=== PATIENT | female | born 2000 | race Caucasian/White ===

== ENCOUNTER 2024-09-26 10:44 | Outpatient (AMB) | payer MEDICAID, SELFPAY ==
[2024-09-26 11:02] VITALS: BP 123/79; PULSE 75; RESP 18; TEMP 36.6; O2SAT 98
--- NOTE | 2024-09-26 11:02 | OBCLNT_ITS ---
Vital Signs 09/26/24 11:02 Height 1.5 m Height Method Stated BP 123/79 Blood Pressure Source Automatic Cuff Blood Pressure Location Left Upper Arm Position Sitting Respiration 18 Pulse 75 Pulse Source Monitor Temp 97.8 F Temp Source Temporal Artery Scan Pulse Oximetry (%) 98 Oxygen Delivery Method Room Air Allergies/Home Meds Allergies & Medications Allergies NKA* Allergy (Uncoded 09/26/24 11:04) Intake Visit Data Collection New Patient or Established: Established Patient (seen at [facility] within 3 years) Reason for Visit:: Do You Feel Safe at Home: Yes Authorities Contacted: N/A PCP or OBGYN visit in last 3 months: Yes Last menstrual period: 02/26/24 Smoking Status Smoking Status: Former smoker Questionnaires PHQ-9 PHQ-2 Over the last 2 weeks, how often have you been bothered by any of the following problems? 1. Little interest or pleasure in doing things: not at all 2. Feeling down, depressed, or hopeless: not at all Total score: 0 Depression screen completed yes Social History Living Situation History Marital Status: Lives With: Spouse Housing: House Tobacco History Smoking Status: Former smoker Alcohol History Alcohol Intake: Never Alcohol Intake Frequency: holidays/special occasions only Domestic Abuse History Do You Feel Safe at Home: Yes Past Medical History Past Medical History Have you ever been diagnosed with any of the following: History of Present Illness HPI Narrative 24-year-old 1 para 0 for OB visit. Patient is a transfer from [facility] with records. First visit at [facility] was at 9 weeks. Last menstrual period February 26, 2024. This gives due date June 03, 2025. First ultrasound was June 01 at 13 weeks. Patient had a EDC 12/02/2024 and this confirmed dates. Patient then had an anatomy scan May 23. Patient was 21 weeks 2 and this also confirmed dates. Baby had a EFW in the 18th percentile. NVS at the was identified. Patient's recent echo showed normal growth and resolved VSD. Next maternal- medicine appointment is on October 01. Patient reports occasional alcohol use. She recently stopped smoking. Patient denies any current medical history. Patient denies surgeries. Reports movement. Denies labor. 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 Patient is a transfer from [facility]. Records are in the chart. I reviewed results and records with patient. Reviewed third trimester lab results with patient. Advised patient to continue to increase fluids. Increase protein in the diet. And rest. Next maternal- medicine appointment is October 01. Patient reports good movement. Denies labor complaints. Complains of low backache. Complains of tingling sometimes of hands and increased leg cramps. Patient stands at work. She is working 4 hours a day. I discussed comfort measures for the tingling. Increase fluids. I gave comfort measures for leg cramps. I discussed labor precautions with patient. Patient declined Tdap today. No other concerns today. 24-year-old 1 para 0 for first OB visit here at [facility]. Patient is a transfer from [facility]. Records are in the chart. I reviewed results and records with patient. Reviewed third trimester lab results with patient. Advised patient to continue to increase fluids. Increase protein in the diet. And rest. Next maternal- medicine appointment is October 01. Patient reports good movement. Denies labor complaints. Complains of low backache. Complains of tingling sometimes of hands and increased leg cramps. Patient stands at work. She is working 4 hours a day. I discussed comfort measures for the tingling. Increase fluids. I gave comfort measures for leg cramps. I discussed labor precautions with patient. Patient declined Tdap today. No other concerns today. denies UTI complaints 156 active Menstrual History Menstrual reliability: definite Flow: normal Menstrual regularity: regular Monthly: Yes Age at menarche: 12 On control pills at conception: No Date of positive home test: 03/27/24 Infection History & Risk Evaluation History of STDs: none HIV risk evaluation: low risk Hepatitis B risk evaluation: low risk Patient or partner has history of Genital Herpes: No Varicella/chicken pox status: immunized Genetic Screening & History Genetic Screening/Teratology Counseling - Includes patient, baby's father, or anyone in either family with: 1. Patient's age 35 years or older as of estimated date of delivery: No 2. Thalassemia (Belarusian, Serbian, Mediterranean, or Background); MCV less than 80: No 3. Neural Tube Defect (Meningomyelocele, Spina Bifida, or Anencephaly): No 4. Congenital Heart Defect: No 5. Down Syndrome: No 6. Meliton-Sachs (Ashkenazi Pentecostal, Cajun, Irish Mauritian): No 7. Pat Disease (Ashkenazi Pentecostal): No 8. Familial Dysautonomia (Ashkenazi Pentecostal): No 9. Sickle Cell Disease or Trait (): No 10. Hemophilia or other blood disorders: No 11. Muscular Dystrophy: No 12. Cystic Fibrosis: No 13. [place]'s Chorea: No 14. Mental Retardation/Autism: No 15. Other inherited genetic or chromosomal disorder: No 16. Maternal Metabolic Disorder (EG,TYPE 1 Diabetes, PKU): No 17. Patient or baby's father had a child with defects not listed above: No 18. Recurrent loss or a stillbirth: No 19. Medications (including supplements, vitamins, herbs or otc drugs)/illicit/recreational drugs/alcohol since last menstrual period: No 20. Any other: No Infection History 1. Live with someone with TB or exposed to TB: No 2. Rash or viral illness since last menstrual period: No 3. Hepatitis B,C: No Other (see comments) Source: [employer] Review of Systems Review of Systems Systems Reviewed: All systems reviewed, normal except as documented Exam General Limitations: no limitations General Appearance: alert, in no apparent distress, comfortable, cooperative, healthy appearing, well developed and well groomed Head Head exam: atraumatic, normocephalic and normal inspection Chest Chest inspection: Present normal inspection and symmetric chest wall rise Resp Respiratory exam: Present normal lung sounds bilaterally Card Cardiovascular exam: Present regular rate, normal rhythm and normal heart sounds Abdominal Abdominal exam: Present soft (fh:30. fht:156) and normal bowel sounds Psych Psychiatric exam: Present normal affect and normal mood Assessment & Plan Diagnosis / Problem List (1) Encounter for supervision of normal first , first trimester: Status: Acute Plan Comfort measures for leg cramps. Advised to increase fluids. Avoid salty foods. Elevate legs after working. Discussed labor precautions. I reviewed Tdap with patient so that she can decide whether or not she wants to refuse Tdap. Keep maternal- medicine appointment for 01 October. Return in 2 weeks visit Additional Plan Follow Up: 2 Weeks (2 week OBc) Office Procedures OB Clinic LOC & Office Proc's Nursing/Assessment Patient Status: Established Patient OB Clinic Nursing Assessment: Medication Reconciliation, Update PMH in EMR and Vital Signs OB Clinic Coordination of Care: Complex Care and Chronic Disease 1-5, Consent,r ecords obtained, informed consent, Education Simp Pt/Fam and Staff clarify orders Established Patient Charge Established Patient Point Assignment: 85 Established Patient Point Charge: EP Level 3 (80-115)
== END 2024-09-26 11:34 | disposition home or self-care (01) ==
LOC: HODSOBC 10:44
PROVIDERS: Supervising Provider Advanced Practice Midwife; Visit Provider Advanced Practice Midwife
DX: Z34.03 Encounter for supervision of normal first pregnancy, third trimester (principal); Z3A.30 30 weeks gestation of pregnancy; Z87.891 Personal history of nicotine dependence
CPT/HCPCS: 99213; G0463

== ENCOUNTER 2024-10-10 10:12 | Outpatient (AMB) | payer MEDICAID, SELFPAY ==
[2024-10-10 10:54] VITALS: BP 117/74; PULSE 90; RESP 18; TEMP 36.8; O2SAT 99; BMI 30.9
--- NOTE | 2024-10-10 10:54 | OBCLNT_ITS ---
Vital Signs 10/10/24 10:54 Height 1.5 m Height Method Stated Weight 69.57 kg Weight Measurement Method Standing Scale BMI 30.9 BP 117/74 Blood Pressure Source Automatic Cuff Blood Pressure Location Left Upper Arm Position Sitting Respiration 18 Pulse 90 Pulse Source Monitor Temp 98.2 F Temp Source Oral Pulse Oximetry (%) 99 Oxygen Delivery Method Room Air Allergies/Home Meds Allergies & Medications Allergies NKA* Allergy (Uncoded 10/10/24 10:54) Medication Reconciliation clotrimazole 2 % vaginal cream (Gyne-Lotrimin) 1 appful vaginal QHS 3 days #21 grams 10/10/24 [Rx] metronidazole 500 mg tablet 500 mg PO BID 7 days #14 tabs 10/10/24 [Rx] Intake Visit Data Collection New Patient or Established: Established Patient (seen at [facility] within 3 years) Reason for Visit:: obc Seen by Clinical Staff ONLY (RN/MA): No Medical Assistant Per Diem Required: No Do You Feel Safe at Home: Yes Authorities Contacted: N/A PCP or OBGYN visit in last 3 months: Yes Date of Last PCP or OBGYN visit: 09/26/24 Hx Now: Yes Are you currently on any form of Control: No Pain Present Currently: No Pain Scale Used: Salguero-Middleton/Numerical Pain scale:: 0 Smoking Status Smoking Status: Former smoker Questionnaires Covid-19 Vaccine Questionnaire Has patient been vacinated for Covid-19 Have you been vacinated for Covid-19: Yes PHQ-9 PHQ-2 Over the last 2 weeks, how often have you been bothered by any of the following problems? 1. Little interest or pleasure in doing things: not at all 2. Feeling down, depressed, or hopeless: not at all Total score: 0 PHQ-9 3. Trouble falling or staying asleep, or sleeping too much: Not at all 4. Feeling tired or having little energy: Not at all 5. Poor appetite or overeating: Not at all 6. Feeling bad about yourself - or that you are a failure or have let yourself or your family down: Not at all 7. Trouble concentrating on things, such as reading the newspaper or watching television: Not at all 8. Moving or speaking so slowly that other people could have noticed? - Or the opposite - being so fidgety or restless that you have been moving around a lot more than usual: not at all 9. Thoughts that you would be better off or of hurting yourself in some way: Not at all Total score: 0 If you checked off any problems, how difficult have these problems made it for you to do your work, take care of things at home, or get along with other people?: not difficult at all Source: Developed by Drs. Kayden Alvarez, Frannie Rm, Dominic Zuleta and colleagues, with an educational robbie from [facility]. Depression screen completed yes Social History Living Situation History Lives With: Spouse Housing: House Tobacco History Smoking Status: Former smoker Second Hand Smoke Exposure: No Alcohol History Alcohol Intake: Never Alcohol Intake Frequency: holidays/special occasions only Domestic Abuse History Do You Feel Safe at Home: Yes Past Medical History Past Medical History Have you ever been diagnosed with any of the following: Visit OB Visit Log OB Flowsheet Initial Weight: Not Recorded Date -?-?-?-?-?-?-?-?-?-?-?-?- EGA Weight Edema CTX Effacement BP Fundal ht Pres Dilation Effacement Station Visit Note Alb Glu FHR Mov 09/26/24 -?-?-?-?-?-?-?-?-?-?-?-?- 30w 3d absent absent 123/79 30 cephalic 24-year-old 1 para 0 for first OB visit here at [facility]. Patient is a transfer from [facility]. Records are in the chart. I reviewed results and records with patient. Reviewed third trimester lab results with patient. Advised patient to continue to increase fluids. Increase protein in the diet. And rest. Next maternal- medicine appointment is October 01. Patient reports good movement. Denies labor complaints. Complains of low backache. Complains of tingling sometimes of hands and increased leg cramps. Patient stands at work. She is working 4 hours a day. I discussed comfort measures for the tingling. Increase fluids. I gave comfort measures for leg cramps. I discussed labor precautions with patient. Patient declined Tdap today. No other concerns today. 24-year-old 1 para 0 for first OB visit here at [facility]. Patient is a transfer from [facility]. Records are in the chart. I reviewed results and records with patient. Reviewed third trimester lab results with patient. Advised patient to continue to increase fluids. Increase protein in the diet. And rest. Next maternal- medicine appointment is October 01. Patient reports good movement. Denies labor complaints. Complains of low backache. Complains of tingling sometimes of hands and increased leg cramps. Patient stands at work. She is working 4 hours a day. I discussed comfort measures for the tingling. Increase fluids. I gave comfort measures for leg cramps. I discussed labor precautions with patient. Patient declined Tdap today. No other concerns today. denies UTI complaints 156 active 10/10/24 -?-?-?-?-?-?-?-?-?-?-?-?- 32w 3d 69.57 kg absent absent 117/74 32 cephalic SGA/fetus 10%, patient has f/u mfm 3 week. reports good weight gain/30lb. 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 reviewed s/s of srom vs increased discharge. spec exam, + yeast, vagina red, curdy discharge. yellow green, nuswab plus, gynelotrimin x 7 and metronidazole 500 bid x7, comfort measure for back ache, ER precaution, declined TDAP. ptl precaution, discuss fkc bid. rtc 2 week 135 active MARTIN Calculator Estimated Delivery Date Method Current WG Current Estimate 12/02/24 Ultrasound #1 32w 3d Other Estimates 12/02/24 LMP (Certain) 32w 3d 12/02/24 Ultrasound #2 32w 3d Assessment & Plan Diagnosis / Problem List (1) Encounter for supervision of normal first , first trimester: Status: Acute (2) Candidal vaginitis: Status: Acute Plan labor precautions reviewed with patient. Discussed ER precautions. Discussed signs symptoms of leaking fluid and causes. NuSwab plus today. Patient declined Tdap. Metronidazole 500 twice daily x 7 days and Gyne-Lotrimin x 7 days. Comfort measures for vaginitis. Kick count twice a day and I reviewed it with patient. Return in 2 weeks OB check. And keep follow-up with MFM in 3 weeks Additional Plan Follow Up: 2 Weeks (obc) Office Procedures OB Clinic LOC & Office Proc's Nursing/Assessment Patient Status: Established Patient OB Clinic Nursing Assessment: BP Monitoring, Medication Reconciliation, Update PMH in EMR and Vital Signs OB Clinic Coordination of Care: Consent,records obtained, informed consent, Edu cation Simp Pt/Fam and Staff clarify orders Special Needs: Heart tones Established Patient Charge Established Patient Point Assignment: 105 Established Patient Point Charge: EP Level 3 (80-115)
== END 2024-10-10 11:16 | disposition home or self-care (01) ==
LOC: HODSOBC 10:12
PROVIDERS: Supervising Provider Advanced Practice Midwife; Visit Provider Advanced Practice Midwife
DX: O09.893 Supervision of other high risk pregnancies, third trimester (principal); Z3A.32 32 weeks gestation of pregnancy; B37.31 Acute candidiasis of vulva and vagina; O36.5930 Maternal care for other known or suspected poor fetal growth, third trimester, not applicable or unspecified; Z87.891 Personal history of nicotine dependence
CPT/HCPCS: 99213; G0463

== ENCOUNTER 2024-10-25 09:39 | Outpatient (AMB) | payer MEDICAID, SELFPAY ==
[2024-10-25 10:09] VITALS: BP 121/76; PULSE 92; RESP 18; TEMP 36.5; O2SAT 96; BMI 31.5
--- NOTE | 2024-10-25 10:09 | OBCLNT_ITS ---
Vital Signs 10/25/24 10:09 Height 1.5 m Height Method Stated Weight 70.987 kg Weight Measurement Method Standing Scale BMI 31.5 BP 121/76 Blood Pressure Source Automatic Cuff Blood Pressure Location Left Upper Arm Position Sitting Respiration 18 Pulse 92 Pulse Source Monitor Temp 97.7 F Temp Source Oral Pulse Oximetry (%) 96 Oxygen Delivery Method Room Air Allergies/Home Meds Allergies & Medications Allergies NKA* Allergy (Uncoded 10/25/24 10:11) Medication Reconciliation No Known Home Medications 10/25/24 [History Confirmed 10/25/24] Intake Visit Data Collection New Patient or Established: Established Patient (seen at [facility] within 3 years) Reason for Visit:: CARE Seen by Clinical Staff ONLY (RN/MA): No Camp Counselor Required: No Do You Feel Safe at Home: Yes Authorities Contacted: N/A PCP or OBGYN visit in last 3 months: Yes Hx Now: Yes Are you currently on any form of Control: No Pain Present Currently: No Pain Scale Used: Salguero-Middleton/Numerical Pain scale:: 0 Smoking Status Smoking Status: Former smoker Questionnaires Covid-19 Vaccine Questionnaire Has patient been vacinated for Covid-19 Have you been vacinated for Covid-19: No PHQ-9 PHQ-2 Over the last 2 weeks, how often have you been bothered by any of the following problems? 1. Little interest or pleasure in doing things: not at all 2. Feeling down, depressed, or hopeless: not at all Total score: 0 PHQ-9 3. Trouble falling or staying asleep, or sleeping too much: Not at all 4. Feeling tired or having little energy: Not at all 5. Poor appetite or overeating: Not at all 6. Feeling bad about yourself - or that you are a failure or have let yourself or your family down: Not at all 7. Trouble concentrating on things, such as reading the newspaper or watching television: Not at all 8. Moving or speaking so slowly that other people could have noticed? - Or the opposite - being so fidgety or restless that you have been moving around a lot more than usual: not at all 9. Thoughts that you would be better off or of hurting yourself in some way: Not at all Total score: 0 Source: Developed by Frannie Samson B[employer], Dominic Zuleta and colleagues, with an educational robbie from [employer]. Depression screen completed yes Social History Living Situation History Lives With: Spouse Housing: House Tobacco History Smoking Status: Former smoker Second Hand Smoke Exposure: No Alcohol History Alcohol Intake: Never Alcohol Intake Frequency: holidays/special occasions only Domestic Abuse History Do You Feel Safe at Home: Yes Care OB Visit Log OB Flowsheet Initial Weight: Not Recorded Date -?-?-?-?-?-?-?-?-?-?-?-?- EGA Weight Edema CTX Effacement BP Fundal ht Pres Dilation Effacement Station Visit Note Alb Glu FHR Mov 09/26/24 -?-?-?-?-?-?-?-?-?-?-?-?- 30w 3d absent absent 123/79 30 cephalic 24-year-old 1 para 0 for first OB visit here at [facility]. Patient is a transfer from [facility]. Records are in the chart. I reviewed results and records with patient. Reviewed third trimester lab results with patient. Advised patient to continue to increase fluids. Increase protein in the diet. And rest. Next maternal- medicine appointment is October 01. Patient reports good movement. Denies labor complaints. Complains of low backache. Complains of tingling sometimes of hands and increased leg cramps. Patient stands at work. She is working 4 hours a day. I discussed comfort measures for the tingling. Increase fluids. I gave comfort measures for leg cramps. I discussed labor precautions with patient. Patient declined Tdap today. No other concerns today. 24-year-old 1 para 0 for first OB visit here at [facility]. Patient is a transfer from [facility]. Records are in the chart. I reviewed results and records with patient. Reviewed third trimester lab results with patient. Advised patient to continue to increase fluids. Increase protein in the diet. And rest. Next maternal- medicine appointment is October 01. Patient reports good movement. Denies labor complaints. Complains of low backache. Complains of tingling sometimes of hands and increased leg cramps. Patient stands at work. She is working 4 hours a day. I discussed comfort measures for the tingling. Increase fluids. I gave comfort measures for leg cramps. I discussed labor precautions with patient. Patient declined Tdap today. No other concerns today. denies UTI complaints 156 active 10/10/24 -?-?-?-?-?-?-?-?-?-?-?-?- 32w 3d 69.57 kg absent absent 117/74 32 cephalic SGA/fetus 10%, patient has f/u mfm 3 week. reports good weight gain/30lb. 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 reviewed s/s of srom vs increased discharge. spec exam, + yeast, vagina red, curdy discharge. yellow green, nuswab plus, gynelotrimin x 7 and metronidazole 500 bid x7, comfort measure for back ache, ER precaution, declined TDAP. ptl precaution, discuss fkc bid. rtc 2 week 135 active 10/25/24 -?-?-?-?-?-?-?-?-?-?-?-?- 34w 4d 70.987 kg absent occasional 121/76 33 cepha lic Reports movement. Reports occasional contractions. Patient feels a Jose Tyler. Disability today. I scheduled ultrasound for growth. GBS next visit. Discussed labor precautions and kick count. Advised to increase fluids. Return in a week OB check 146 active MARTIN Calculator Estimated Delivery Date Method Current WG Current Estimate 12/02/24 Ultrasound #1 34w 4d Other Estimates 12/02/24 LMP (Certain) 34w 4d 12/02/24 Ultrasound #2 34w 4d Notes Visit Date: 10/25/24 Last Updated by: Desirae Hayden, SANGEETA 24 yo , lmp 03/01/24. EDC 12/04/24, A+,abs-, rpr;;nr, rub NI, hbsag-,hiv-,HC-, GC/CT-, 3rd tri lab wnl Office Procedures OB Clinic LOC & Office Proc's Nursing/Assessment Patient Status: Established Patient OB Clinic Nursing Assessment: Medication Reconciliation, Update PMH in EMR and Vital Signs OB Clinic Coordination of Care: Complex Care and Chronic Disease 1-5, Consent,records obtained, informed consent, Education Simp Pt/Fam, Lab and Imaging orders, Results/Orders obtained and Staff clarify orders Special Needs: Heart tones Miscellaneous Interventions: Blood/Urine Collection Established Patient Charge Established Patient Point Assignment: 165 Established Patient Point Charge: EP Level 5 (160-above) Assessment & Plan Diagnosis / Problem List (1) Encounter for supervision of normal first , first trimester: Status: Acute Plan Discussed labor precautions and kick count twice a day. Increase fluids and rest. Disability paperwork today. GBS next visit. Return in a week OB check. Sono for growth Additional Plan Follow Up: 1 Week (obc/gbs)
[2024-10-25 12:52] LABS: Bilirubin,Urine Clinitek Negative (Negative); Blood,Urine Clinitek Negative (Negative); Glucose, Urine Clinitek Negative (Negative); Ketones,Urine Clinitek Negative (Negative); Leukocyte Esterase,Urine Clin Negative (Negative); Nitrite,Urine Clinitek Negative (Negative); PH,Urine Clinitek 6.5 (5.0-7.0); Protein,Urine Clinitek Negative (Neg - Trace); Specific Gravity,Urine Clin <= 1.005 (1.001-1.030); Urobilinogen,Urine Clinitek 0.2 mg/dL (0.0-1.0)
== END 2024-10-25 10:20 | disposition home or self-care (01) ==
LOC: HODSOBC 09:39
PROVIDERS: PCP Advanced Practice Midwife; Referring Provider Advanced Practice Midwife; Supervising Provider Advanced Practice Midwife; Visit Provider Advanced Practice Midwife
DX: Z34.01 Encounter for supervision of normal first pregnancy, first trimester (principal); Z3A.34 34 weeks gestation of pregnancy
CPT/HCPCS: 81001; 99215; G0463

== ENCOUNTER 2024-11-01 09:55 | Outpatient (AMB) | payer MEDICAID, SELFPAY ==
[2024-11-01 10:19] VITALS: BP 127/80; PULSE 115; RESP 18; TEMP 36.2; O2SAT 98; BMI 31.8
--- NOTE | 2024-11-01 10:19 | OBCLNT_ITS ---
Vital Signs 11/01/24 10:19 Height 1.5 m Height Method Stated Weight 71.781 kg Weight Measurement Method Standing Scale BMI 31.8 BP 127/80 Blood Pressure Source Automatic Cuff Blood Pressure Location Left Upper Arm Position Sitting Respiration 18 Pulse 115 H Pulse Source Monitor Temp 97.2 F Temp Source Oral Pulse Oximetry (%) 98 Oxygen Delivery Method Room Air Allergies/Home Meds Allergies & Medications Allergies NKA* Allergy (Uncoded 11/01/24 10:20) Medication Reconciliation No Known Home Medications 10/25/24 [History Confirmed 11/01/24] Intake Visit Data Collection New Patient or Established: Established Patient (seen at [facility] within 3 years) Reason for Visit:: OBC Seen by Clinical Staff ONLY (RN/MA): No Lathe Set Up Person Required: No Do You Feel Safe at Home: Yes Authorities Contacted: N/A PCP or OBGYN visit in last 3 months: Yes Date of Last PCP or OBGYN visit: 10/25/24 Hx Now: Yes Are you currently on any form of Control: No Pain Present Currently: No Pain Scale Used: Salguero-Middleton/Numerical Pain scale:: 0 Smoking Status Smoking Status: Former smoker Questionnaires Covid-19 Vaccine Questionnaire Has patient been vacinated for Covid-19 Have you been vacinated for Covid-19: Yes PHQ-9 PHQ-2 Over the last 2 weeks, how often have you been bothered by any of the following problems? 1. Little interest or pleasure in doing things: not at all 2. Feeling down, depressed, or hopeless: not at all Total score: 0 PHQ-9 3. Trouble falling or staying asleep, or sleeping too much: Not at all 4. Feeling tired or having little energy: Not at all 5. Poor appetite or overeating: Not at all 6. Feeling bad about yourself - or that you are a failure or have let yourself or your family down: Not at all 7. Trouble concentrating on things, such as reading the newspaper or watching television: Not at all 8. Moving or speaking so slowly that other people could have noticed? - Or the opposite - being so fidgety or restless that you have been moving around a lot more than usual: not at all 9. Thoughts that you would be better off or of hurting yourself in some way: Not at all Total score: 0 If you checked off any problems, how difficult have these problems made it for you to do your work, take care of things at home, or get along with other peopl e?: not difficult at all Source: Developed by Drs. Kayden Alvarez, Frannie Rm, Dominic Zuleta and colleagues, with an educational robbie from [employer]. Depression screen completed yes Social History Living Situation History Marital Status: Lives With: Spouse Housing: House Tobacco History Smoking Status: Former smoker Second Hand Smoke Exposure: No Alcohol History Alcohol Intake: Never Alcohol Intake Frequency: holidays/special occasions only Domestic Abuse History Do You Feel Safe at Home: Yes Care OB Visit Log OB Flowsheet Initial Weight: Not Recorded Date -?-?-?-?-?-?-?-?-?-?-?-?- EGA Weight BP Alb Glu CTX Pres Fundal ht FHR Mov Dilation Station Effacement Hx Notes Visit Note 09/26/24 -?-?-?-?-?-?-?-?-?-?-?-?- 30w 3d 123/79 absent cephalic 30 156 activ e 24-year-old 1 para 0 for first OB visit here at [facility]. Patient is a transfer from [facility]. Records are in the chart. I reviewed results and records with patient. Reviewed third trimester lab results with patient. Advised patient to continue to increase fluids. Increase protein in the diet. And rest. Next maternal- medicine appointment is October 01. Patient reports good movement. Denies labor complaints. Complains of low backache. Complains of tingling sometimes of hands and increased leg cramps. Patient stands at work. She is working 4 hours a day. I discussed comfort measures for the tingling. Increase fluids. I gave comfort measures for leg cramps. I discussed labor precautions with patient. Patient declined Tdap today. No other concerns today. 24-year-old 1 para 0 for first OB visit here at [facility]. Patient is a transfer from [facility]. Records are in the chart. I reviewed results and records with patient. Reviewed third trimester lab results with patient. Advised patient to continue to increase fluids. Increase protein in the diet. And rest. Next maternal- medicine appointment is October 01. Patient reports good movement. Denies labor complaints. Complains of low backache. Complains of tingling sometimes of hands and increased leg cramps. Patient stands at work. She is working 4 hours a day. I discussed comfort measures for the tingling. Increase fluids. I gave comfort measures for leg cramps. I discussed labor precautions with patient. Patient declined Tdap today. No other concerns today. denies UTI complaints 10/10/24 -?-?-?-?-?-?-?-?-?-?-?-?- 32w 3d 69.57 kg 117/74 absent cephalic 32 135 active SGA/fetus 10%, patient has f/u mfm 3 week. reports good weight gain/30lb. 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 reviewed s/s of srom vs increased discharge. spec exam, + yeast, vagina red, curdy discharge. yellow green, nuswab plus, gynelotrimin x 7 and metronidazole 500 bid x7, comfort measure for back ache, ER precaution, declined TDAP. ptl precaution, discuss fkc bid. rtc 2 week 10/25/24 -?-?-?-?-?--?-?-?-?-?-?-?- 34w 4d 70.987 kg 121/76 occasional cephalic 33 146 active Reports movement. Reports occasional contractions. Patient feels a [place]. Disability today. I scheduled ultrasound for growth. GBS next visit. Discussed labor precautions and kick count. Advised to increase fluids. Return in a week OB check MARTIN Calculator Estimated Delivery Date Method Current WG Current Estimate 12/02/24 Ultrasound #1 35w 4d Other Estimates 12/02/24 LMP (Certain) 35w 4d 12/02/24 Ultrasound #2 35w 4d Notes Visit Date: 10/25/24 Last Updated by: Desirae Hayden CNM 24 yo , lmp 03/01/24. EDC 12/04/24, A+,abs-, rpr;;nr, rub NI, hbsag-,hiv-,HC-, GC/CT-, 3rd tri lab wnl Office Procedures OB Clinic LOC & Office Proc's Nursing/Assessment Patient Status: Established Patient OB Clinic Nursing Assessment: Medication Reconciliation, Update PMH in EMR and Vital Signs OB Clinic Coordination of Care: Education Complex Pt/Fam, Consent,records obtained, informed consent, Lab and Imaging orders, Results/Orders obtained and Staff clarify orders Special Needs: Heart tones Established Patient Charge Established Patient Point Assignment: 115 Established Patient Point Charge: EP Level 3 (80-115) Assessment & Plan Diagnosis / Problem List (1) Encounter for supervision of normal first , first trimester: Status: Acute Plan discuss labor precaution, fkc bid, GBS today. hydrate. rtc 1 week obc
== END 2024-11-01 10:47 | disposition home or self-care (01) ==
LOC: HODSOBC 09:55
PROVIDERS: PCP Advanced Practice Midwife; Referring Provider Advanced Practice Midwife; Supervising Provider Obstetrics & Gynecology; Visit Provider Advanced Practice Midwife
DX: Z34.03 Encounter for supervision of normal first pregnancy, third trimester (principal); Z3A.35 35 weeks gestation of pregnancy; Z36.85 Encounter for antenatal screening for Streptococcus B
CPT/HCPCS: 99213; G0463

== ENCOUNTER 2024-11-08 09:27 | Outpatient (AMB) | payer MEDICAID, SELFPAY ==
[2024-11-08 09:41] VITALS: BP 112/74; PULSE 95; RESP 20; TEMP 36.3; O2SAT 96; BMI 32.3
--- NOTE | 2024-11-08 09:41 | OBCLNT_ITS ---
Vital Signs 11/08/24 09:41 Height 1.5 m Height Method Stated Weight 72.631 kg Weight Measurement Method Standing Scale BMI 32.3 BP 112/74 Blood Pressure Source Automatic Cuff Blood Pressure Location Right Upper Arm Position Sitting Respiration 20 Pulse 95 Pulse Source Monitor Temp 97.4 F Temp Source Oral Pulse Oximetry (%) 96 Oxygen Delivery Method Room Air Allergies/Home Meds Allergies & Medications Allergies NKA* Allergy (Uncoded 11/08/24 09:42) Medication Reconciliation No Known Home Medications 10/25/24 [History Confirmed 11/08/24] Intake Visit Data Collection New Patient or Established: Established Patient (seen at [facility] within 3 years) Reason for Visit:: CARE Seen by Clinical Staff ONLY (RN/MA): No Liability Claims Examiner Required: No Do You Feel Safe at Home: Yes Authorities Contacted: N/A PCP or OBGYN visit in last 3 months: Yes Hx Now: Yes Pain Present Currently: No Pain Scale Used: Salguero-Middleton/Numerical Pain scale:: 0 Smoking Status Smoking Status: Former smoker Questionnaires Covid-19 Vaccine Questionnaire Has patient been vacinated for Covid-19 Have you been vacinated for Covid-19: Yes PHQ-9 PHQ-2 Over the last 2 weeks, how often have you been bothered by any of the following problems? 1. Little interest or pleasure in doing things: not at all 2. Feeling down, depressed, or hopeless: not at all Total score: 0 PHQ-9 3. Trouble falling or staying asleep, or sleeping too much: Not at all 4. Feeling tired or having little energy: Not at all 5. Poor appetite or overeating: Not at all 6. Feeling bad about yourself - or that you are a failure or have let yourself or your family down: Not at all 7. Trouble concentrating on things, such as reading the newspaper or watching television: Not at all 8. Moving or speaking so slowly that other people could have noticed? - Or the opposite - being so fidgety or restless that you have been moving around a lot more than usual: not at all 9. Thoughts that you would be better off or of hurting yourself in some way: Not at all Total score: 0 Source: Developed by Drs. Kayden Alvarez, Frannie B.Dominic Nance and colleagues, with an educational robbie from [employer]. Depression screen completed yes Social History Living Situation History Lives With: Spouse Housing: House Tobacco History Smoking Status: Former smoker Second Hand Smoke Exposure: No Alcohol History Alcohol Intake: Never Alcohol Intake Frequency: holidays/special occasions only Domestic Abuse History Do You Feel Safe at Home: Yes Care OB Visit Log OB Flowsheet Initial Weight: Not Recorded Date -?-?-?-?-?-?-?-?-?-?-?-?- EGA Weight BP Alb Glu CTX Pres Fundal ht FHR Mov Dilation Station Effacement Hx Notes Visit Note 09/26/24 -?-?-?-?-?-?-?-?-?-?-?-?- 30w 3d 123/79 absent cephalic 30 156 activ e 24-year-old 1 para 0 for first OB visit here at [facility]. Patient is a transfer from [facility]. Records are in the chart. I reviewed results and records with patient. Reviewed third trimester lab results with patient. Advised patient to continue to increase fluids. Increase protein in the diet. And rest. Next maternal- medicine appointment is October 01. Patient reports good movement. Denies labor complaints. Complains of low backache. Complains of tingling sometimes of hands and increased leg cramps. Patient stands at work. She is working 4 hours a day. I discussed comfort measures for the tingling. Increase fluids. I gave comfort measures for leg cramps. I discussed labor precautions with patient. Patient declined Tdap today. No other concerns today. 24-year-old 1 para 0 for first OB visit here at [facility]. Patient is a transfer from [facility]. Records are in the chart. I reviewed results and records with patient. Reviewed third trimester lab results with patient. Advised patient to continue to increase fluids. Increase protein in the diet. And rest. Next maternal- medicine appointment is October 01. Patient reports good movement. Denies labor complaints. Complains of low backache. Complains of ting ling sometimes of hands and increased leg cramps. Patient stands at work. She is working 4 hours a day. I discussed comfort measures for the tingling. Increase fluids. I gave comfort measures for leg cramps. I discussed labor precautions with patient. Patient declined Tdap today. No other concerns today. denies UTI complaints 10/10/24 -?-?-?-?-?-?-?-?-?-?-?-?- 32w 3d 69.57 kg 117/74 absent cephalic 32 135 active SGA/fetus 10%, patient has f/u mfm 3 week. reports good weight gain/30lb. 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 try on baster. patient is planning to stop work. 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 reviewed s/s of srom vs increased discharge. spec exam, + yeast, vagina red, curdy discharge. yellow green, nuswab plus, gynelotrimin x 7 and metronidazole 500 bid x7, comfort measure for back ache, ER precaution, declined TDAP. ptl precaution, discuss fkc bid. rtc 2 week 10/25/24 -?-?-?-?-?-?-?-?-?-?-?-?- 34w 4d 70.987 kg 121/76 occasional cephalic 33 146 active Reports movement. Reports occasional contractions. Patient feels a [place]. Disability today. I scheduled ultrasound for growth. GBS next visit. Discussed labor precautions and kick count. Advised to increase fluids. Return in a week OB check 11/01/24 -?-?-?-?-?-?-?-?-?-?-?-?- 35w 4d 71.781 kg 127/80 occasional cephalic 35 156 active reports +FM, denies uc, occ [place] chan, denies leaking or bleeding, fetus active GBS today, discuss labor precaution, fkc bid, increase fluid, discuss ER precaution, rtc 1 week oBC 11/08/24 -?-?-?-?-?-?-?-?-?-?-?-?- 36w 4d 72.631 kg 112/74 occasional cephalic 36 145 active fetus active. increased michelle chan, denies leaking or bleeding labor precaution reviewed, FKC BID, discuss ER precaution, hydrate. rtc 1 week MARTIN Calculator Estimated Delivery Date Method Current WG Current Estimate 12/02/24 Ultrasound #1 36w 4d Other Estimates 12/02/24 LMP (Certain) 36w 4d 12/02/24 Ultrasound #2 36w 4d Notes Visit Date: 10/25/24 Last Updated by: Desirae Hayden, CNM 24 yo , lmp 03/01/24. EDC 12/04/24, A+,abs-, rpr;;nr, rub NI, hbsag-,hiv-,HC-, GC/CT-, 3rd tri lab wnl Office Procedures OB Clinic LOC & Office Proc's Nursing/Assessment Patient Status: Established Patient OB Clinic Nursing Assessment: Medication Reconciliation, Update PMH in EMR and Vital Signs OB Clinic Coordination of Care: Complex Care and Chronic Disease 1-5, Consent,records obtained, informed consent, Education Simp Pt/Fam, Lab and Imaging orders, Results/Orders obtained and Staff clarify orders Special Needs: Heart tones Established Patient Charge Established Patient Point Assignment: 135 Established Patient Point Charge: EP Level 4 (120-155) Assessment & Plan Diagnosis / Problem List (1) Encounter for supervision of normal first , first trimester: Status: Acute Plan discuss labor precaution, fkc bid. discuss ER precaution Additional Plan Follow Up: 1 Week (obc)
== END 2024-11-08 09:55 | disposition home or self-care (01) ==
PROVIDERS: PCP Advanced Practice Midwife; Referring Provider Advanced Practice Midwife; Supervising Provider Advanced Practice Midwife; Visit Provider Advanced Practice Midwife
DX: Z34.03 Encounter for supervision of normal first pregnancy, third trimester (principal); Z3A.36 36 weeks gestation of pregnancy; Z87.891 Personal history of nicotine dependence
CPT/HCPCS: 99214; G0463

== ENCOUNTER 2024-11-15 09:21 | Outpatient (AMB) | payer MEDICAID, SELFPAY ==
[2024-11-15 09:34] VITALS: BP 121/74; PULSE 93; RESP 18; TEMP 36.2; O2SAT 98; BMI 32.6
--- NOTE | 2024-11-15 09:34 | AMB.OBVISIT ---
Vital Signs 11/15/24 09:34 Height 1.5 m Height Method Stated Weight 73.539 kg Weight Measurement Method Standing Scale BMI 32.6 BP 121/74 Blood Pressure Source Automatic Cuff Blood Pressure Location Left Upper Arm Position Sitting Respiration 18 Pulse 93 Pulse Source Monitor Temp 97.2 F Temp Source Oral Pulse Oximetry (%) 98 Oxygen Delivery Method Room Air Allergies/Home Meds Allergies & Medications Allergies NKA* Allergy (Uncoded 11/15/24 09:36) Medication Reconciliation No Known Home Medications 10/25/24 [History Confirmed 11/15/24] Intake Visit Data Collection New Patient or Established: Established Patient (seen at [facility] within 3 years) Reason for Visit:: OBC Seen by Clinical Staff ONLY (RN/MA): No International Flight Attendant Required: No Do You Feel Safe at Home: Yes Authorities Contacted: N/A PCP or OBGYN visit in last 3 months: Yes Date of Last PCP or OBGYN visit: 11/08/24 Hx Now: Yes Are you currently on any form of Control: No Pain Present Currently: No Pain Scale Used: Salguero-Middleton/Numerical Pain scale:: 0 Smoking Status Smoking Status: Former smoker Questionnaires Covid-19 Vaccine Questionnaire Has patient been vacinated for Covid-19 Have you been vacinated for Covid-19: Yes PHQ-9 PHQ-2 Over the last 2 weeks, how often have you been bothered by any of the following problems? 1. Little interest or pleasure in doing things: not at all 2. Feeling down, depressed, or hopeless: not at all Total score: 0 PHQ-9 3. Trouble falling or staying asleep, or sleeping too much: Not at all 4. Feeling tired or having little energy: Not at all 5. Poor appetite or overeating: Not at all 6. Feeling bad about yourself - or that you are a failure or have let yourself or your family down: Not at all 7. Trouble concentrating on things, such as reading the newspaper or watching television: Not at all 8. Moving or speaking so slowly that other people could have noticed? - Or the opposite - being so fidgety or restless that you have been moving around a lot more than usual: not at all 9. Thoughts that you would be better off or of hurting yourself in some way: Not at all Total score: 0 If you checked off any problems, how difficult have these problems made it for you to do your work, take care of things at home, or get along with other people?: not difficult at all Source: Developed by Drs. Kayden Alvarez, Frannie Rm, Dominic Zuleta and colleagues, with an educational robbie from [employer]. Depression screen completed yes Social History Living Situation History Marital Status: Lives With: Spouse Housing: House Tobacco History Smoking Status: Former smoker Second Hand Smoke Exposure: No Alcohol History Alcohol Intake: Never Alcohol Intake Frequency: holidays/special occasions only Domestic Abuse History Do You Feel Safe at Home: Yes Care OB Visit Log OB Flowsheet Initial Weight: Not Recorded Date <del>?</del> EGA Weight BP Alb Glu CTX Pres Fundal ht FHR Mov Dilation Station Effacement Hx Notes Visit Note 09/26/24 <del>?</del> 30w 3d 123/79 absent cephalic 30 156 active 24-year-old 1 para 0 for first OB visit here at [facility]. Patient is a transfer from [facility]. Records are in the chart. I reviewed results and records with patient. Reviewed third trimester lab results with patient. Advised patient to continue to increase fluids. Increase protein in the diet. And rest. Next maternal- medicine appointment is October 01. Patient reports good movement. Denies labor complaints. Complains of low backache. Complains of tingling sometimes of hands and increased leg cramps. Patient stands at work. She is working 4 hours a day. I discussed comfort measures for the tingling. Increase fluids. I gave comfort measures for leg cramps. I discussed labor precautions with patient. Patient declined Tdap today. No other concerns today. 24-year-old 1 para 0 for first OB visit here at [facility]. Patient is a transfer from [facility]. Records are in the chart. I reviewed results and records with patient. Reviewed third trimester lab results with patient. Advised patient to continue to increase fluids. Increase protein in the diet. And rest. Next maternal- medicine appointment is October 01. Patient reports good movement. Denies labor complaints. Complains of low backache. Complains of tingling sometimes of hands and increased leg cramps. Patient stands at work. She is working 4 hours a day. I discussed comfort measures for the tingling. Increase fluids. I gave comfort measures for leg cramps. I discussed labor precautions with patient. Patient declined Tdap today. No other concerns today. denies UTI complaints 10/10/24 <del>?</del> 32w 3d 69.57 kg 117/74 absent cephalic 32 135 active SGA/fetus 10%, patient has f/u mfm 3 week. reports good weight gain/30lb. 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 reviewed s/s of srom vs increased discharge. spec exam, + yeast, vagina red, curdy discharge. yellow green, nuswab plus, gynelotrimin x 7 and metronidazole 500 bid x7, comfort measure for back ache, ER precaution, declined TDAP. ptl precaution, discuss fkc bid. rtc 2 week 10/25/24 <del>?</del> 34w 4d 70.987 kg 121/76 occasional cephalic 33 146 active Reports movement. Reports occasional contractions. Patient feels a [place] Chan. Disability today. I scheduled ultrasound for growth. GBS next visit. Discussed labor precautions and kick count. Advised to increase fluids. Return in a week OB check 11/01/24 <del>?</del> 35w 4d 71.781 kg 127/80 occasional cephalic 35 156 active reports +FM, denies uc, occ [place] chan, denies leaking or bleeding, fetus active GBS today, discuss labor precaution, fkc bid, increase fluid, discuss ER precaution, rtc 1 week oBC 11/08/24 <del>?</del> 36w 4d 72.631 kg 112/74 occasional cephalic 36 145 active fetus active. increased michelle chan, denies leaking or bleeding labor precaution reviewed, FKC BID, discuss ER precaution, hydrate. rtc 1 week 11/15/24 <del>?</del> 37w 4d 73.539 kg 121/74 occasional cephalic 37 143 active increased uc, no bleeding, no leaking. fetus active discuss labor precaution, fkc bid, hydrate. comfort measure and danger s/s discussed MARTIN Calculator Estimated Delivery Date Method Current WG Current Estimate 12/02/24 Ultrasound #1 37w 4d Other Estimates 12/02/24 LMP (Certain) 37w 4d 12/02/24 Ultrasound #2 37w 4d Notes Visit Date: 11/15/24 Last Updated by: Desirae Hayden CNM GBS- Visit Date: 10/25/24 Last Updated by: Desirae Hayden CNM 24 yo , lmp 03/01/24. EDC 12/04/24, A+,abs-, rpr;;nr, rub NI, hbsag-,hiv-,HC-, GC/CT-, 3rd tri lab wnl Office Procedures OB Clinic LOC & Office Proc's Nursing/Assessment Patient Status: Established Patient OB Clinic Nursing Assessment: Medication Reconciliation, Update PMH in EMR and Vital Signs OB Clinic Coordination of Care: Consent,records obtained, informed consent, Education Simp Pt/Fam and Staff clarify orders Special Needs: Heart tones Established Patient Charge Established Patient Point Assignment: 90 Established Patient Point Charge: EP Level 3 (80-115) Assessment & Plan Diagnosis / Problem List (1) Encounter for supervision of high risk in third trimester, antepartum: Status: Acute Plan Discussed labor precautions. Reviewed kick count with patient. kick count twice daily. Increase fluids and hydrate. Comfort measures for labor. Discussed danger signs symptoms. Return week OB check Additional Plan Follow Up: 1 Week (obc)
== END 2024-11-15 10:12 | disposition home or self-care (01) ==
LOC: HODSOBC 09:21
PROVIDERS: PCP Advanced Practice Midwife; Referring Provider Advanced Practice Midwife; Supervising Provider Advanced Practice Midwife; Visit Provider Advanced Practice Midwife
DX: O09.93 Supervision of high risk pregnancy, unspecified, third trimester (principal); Z3A.37 37 weeks gestation of pregnancy; Z87.891 Personal history of nicotine dependence
CPT/HCPCS: 99213; G0463

== ENCOUNTER 2024-11-22 08:58 | Outpatient (AMB) | payer MEDICAID, SELFPAY ==
[2024-11-22 09:04] VITALS: BP 124/76; PULSE 109; RESP 17; TEMP 36.6; O2SAT 97; BMI 33.3
--- NOTE | 2024-11-22 09:04 | OBCLNT_ITS ---
Vital Signs 11/22/24 09:04 Height 1.5 m Height Method Stated Weight 74.843 kg Weight Measurement Method Standing Scale BMI 33.3 BP 124/76 Blood Pressure Source Automatic Cuff Blood Pressure Location Right Upper Arm Position Sitting Respiration 17 Pulse 109 H Pulse Source Monitor Temp 97.8 F Temp Source Temporal Artery Scan Pulse Oximetry (%) 97 Oxygen Delivery Method Room Air Allergies/Home Meds Allergies & Medications Allergies NKA* Allergy (Uncoded 11/22/24 09:07) Medication Reconciliation No Known Home Medications 10/25/24 [History Confirmed 11/22/24] Intake Visit Data Collection New Patient or Established: Established Patient (seen at [facility] within 3 years) Reason for Visit:: OBC Seen by Clinical Staff ONLY (RN/MA): No Gis Application Developer Required: No Do You Feel Safe at Home: Yes Authorities Contacted: N/A PCP or OBGYN visit in last 3 months: Yes Date of Last PCP or OBGYN visit: 11/15/24 Hx Now: Yes Are you currently on any form of Control: No Pain Present Currently: No Pain Scale Used: Salguero-Middleton/Numerical Pain scale:: 0 Smoking Status Smoking Status: Former smoker Questionnaires Covid-19 Vaccine Questionnaire Has patient been vacinated for Covid-19 Have you been vacinated for Covid-19: No PHQ-9 PHQ-2 Over the last 2 weeks, how often have you been bothered by any of the following problems? 1. Little interest or pleasure in doing things: not at all 2. Feeling down, depressed, or hopeless: not at all Total score: 0 PHQ-9 3. Trouble falling or staying asleep, or sleeping too much: Not at all 4. Feeling tired or having little energy: Not at all 5. Poor appetite or overeating: Not at all 6. Feeling bad about yourself - or that you are a failure or have let yourself or your family down: Not at all 7. Trouble concentrating on things, such as reading the newspaper or watching television: Not at all 8. Moving or speaking so slowly that other people could have noticed? - Or the opposite - being so fidgety or restless that you have been moving around a lot more than usual: not at all 9. Thoughts that you would be better off or of hurting yourself in some way: Not at all Total score: 0 If you checked off any problems, how difficult have these problems made it for you to do your work, take care of things at home, or get along with other people?: not difficult at all Source: Developed by Drs. Kayden Alvarez, Frannie Rm, Dominic Zuleat and colleagues, with an educational robbie from [employer]. Depression screen completed yes Social History Living Situation History Lives With: Spouse Housing: House Tobacco History Smoking Status: Former smoker Second Hand Smoke Exposure: No Alcohol History Alcohol Intake: Never Alcohol Intake Frequency: holidays/special occasions only Domestic Abuse History Do You Feel Safe at Home: Yes Care OB Visit Log OB Flowsheet Initial Weight: Not Recorded Date -?-?-?-?-?-?-?-?-?-?-?-?- EGA Weight BP Alb Glu CTX Pres Fundal ht FHR Mov Dilation Station Effacement Hx Notes Visit Note 09/26/24 -?-?-?-?-?-?-?-?-?-?-?-?- 30w 3d 123/79 absent cephalic 30 156 activ e 24-year-old 1 para 0 for first OB visit here at [facility]. Patient is a transfer from [facility]. Records are in the chart. I reviewed results and records with patient. Reviewed third trimester lab results with patient. Advised patient to continue to increase fluids. Increase protein in the diet. And rest. Next maternal- medicine appointment is October 01. Patient reports good movement. Denies labor complaints. Complains of low backache. Complains of tingling sometimes of hands and increased leg cramps. Patient stands at work. She is working 4 hours a day. I discussed comfort measures for the tingling. Increase fluids. I gave comfort measures for leg cramps. I discussed labor precautions with patient. Patient declined Tdap today. No other concerns today. 24-year-old 1 para 0 for first OB visit here at [facility]. Patient is a transfer from [facility]. Records are in the chart. I reviewed results and records with patient. Reviewed third trimester lab results with patient. Advised patient to continue to increase fluids. Increase protein in the diet. And rest. Next maternal-fe prabhu medicine appointment is October 01. Patient reports good movement. Denies labor complaints. Complains of low backache. Complains of tingling sometimes of hands and increased leg cramps. Patient stands at work. She is working 4 hours a day. I discussed comfort measures for the tingling. Increase fluids. I gave comfort measures for leg cramps. I discussed labor precautions with patient. Patient declined Tdap today. No other concerns today. denies UTI complaints 10/10/24 -?-?-?-?-?-?-?-?-?-?-?-?- 32w 3d 69.57 kg 117/74 absent cephalic 32 135 active SGA/fetus 10%, patient has f/u mfm 3 week. reports good weight gain/30lb. 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 reviewed s/s of srom vs increased discharge. spec exam, + yeast, vagina red, curdy discharge. yellow green, nuswab plus, gynelotrimin x 7 and metronidazole 500 bid x7, comfort measure for back ache, ER precaution, declined TDAP. ptl precaution, discuss fkc bid. rtc 2 week 10/25/24 -?-?-?-?-?-?-?-?-?-?-?-?- 34w 4d 70.987 kg 121/76 occasional cephalic 33 146 active Reports movement. Reports occasional contractions. Patient feels a Michelle Chan. Disability today. I scheduled ultrasound for growth. GBS next visit. Discussed labor precautions and kick count. Advised to increase fluids. Return in a week OB check 11/01/24 -?-?-?-?-?-?-?-?--?-?-?-?- 35w 4d 71.781 kg 127/80 occasional cephalic 35 156 active reports +FM, denies uc, occ [place] chan, denies leaking or bleeding, fetus active GBS today, discuss labor precaution, fkc bid, increase fluid, discuss ER precaution, rtc 1 week oBC 11/08/24 -?-?-?-?-?-?-?-?-?-?-?-?- 36w 4d 72.631 kg 112/74 occasional cephalic 36 145 active fetus active. increased michelle chan, denies leaking or bleeding labor precaution reviewed, FKC BID, discuss ER precaution, hydrate. rtc 1 week 11/15/24 -?-?-?-?-?-?-?-?-?-?-?-?- 37w 4d 73.539 kg 121/74 occasional cephalic 37 143 active increased uc, no bleeding, no leaking. fetus active discuss labor precaution, fkc bid, hydrate. comfort measure and danger s/s discussed 11/22/24 -?-?-?-?-?-?-?-?-?-?-?-?- 38w 4d 74.843 kg 124/76 occasional cephalic 38 146 active increased [pressure, denies leaking or bleeding. occ uc, fetus active discuss labor precaution, fkc bid, discuss danger s/s, ER prec. rtc 1 week obc discuss labor precaution, fk c bid, discuss danger s/s, ER prec. rtc 1 week obc, hydrate MARTIN Calculator Estimated Delivery Date Method Current WG Current Estimate 12/02/24 Ultrasound #1 38w 4d Other Estimates 12/02/24 LMP (Certain) 38w 4d 12/02/24 Ultrasound #2 38w 4d Notes Visit Date: 11/15/24 Last Updated by: Desirae Hayden CNM GBS- Visit Date: 10/25/24 Last Updated by: Desirae Hayden CNM 24 yo , lmp 03/01/24. EDC 12/04/24, A+,abs-, rpr;;nr, rub NI, hbsag-,hiv-,HC-, GC/CT-, 3rd tri lab wnl Office Procedures OB Clinic LOC & Office Proc's Nursing/Assessment Patient Status: Established Patient OB Clinic Nursing Assessment: Medication Reconciliation, Update PMH in EMR and Vital Signs OB Clinic Coordination of Care: Complex Care and Chronic Disease 1-5, Consent,records obtained, informed consent, Education Simp Pt/Fam and Staff clarify orders Special Needs: Heart tones Established Patient Charge Established Patient Point Assignment: 115 Established Patient Point Charge: EP Level 3 (80-115) Assessment & Plan Diagnosis / Problem List (1) Encounter for supervision of high risk in third trimester, antepartum: Status: Acute Plan discuss labor precaution, ER precaution and danger s/s. FKC bid,hydrate. rtc 1 week obc Additional Plan Follow Up: 1 Week (obc)
== END 2024-11-22 09:39 | disposition home or self-care (01) ==
LOC: HODSOBC 08:58
PROVIDERS: PCP Advanced Practice Midwife; Referring Provider Advanced Practice Midwife; Supervising Provider Advanced Practice Midwife; Visit Provider Advanced Practice Midwife
DX: O09.93 Supervision of high risk pregnancy, unspecified, third trimester (principal); Z3A.38 38 weeks gestation of pregnancy; Z87.891 Personal history of nicotine dependence
CPT/HCPCS: 99213; G0463

== ENCOUNTER 2024-11-28 08:46 | Outpatient (AMB) | payer MEDICAID, SELFPAY ==
[2024-11-28 09:16] VITALS: BP 123/81; PULSE 81; RESP 17; TEMP 36.4; O2SAT 97; BMI 33.7
--- NOTE | 2024-11-28 09:16 | AMB.OBVISIT ---
Vital Signs 11/28/24 09:16 Height 1.5 m Height Method Stated Weight 75.977 kg Weight Measurement Method Standing Scale BMI 33.7 BP 123/81 Blood Pressure Source Automatic Cuff Blood Pressure Location Right Upper Arm Position Sitting Respiration 17 Pulse 81 Pulse Source Monitor Temp 97.5 F Temp Source Temporal Artery Scan Pulse Oximetry (%) 97 Oxygen Delivery Method Room Air Allergies/Home Meds Allergies & Medications Allergies No Known Drug Allergies Allergy (Verified 11/28/24 10:28) Medication Reconciliation No Known Home Medications 10/25/24 [History Confirmed 11/28/24] Intake Visit Data Collection New Patient or Established: Established Patient (seen at [facility] within 3 years) Reason for Visit:: OBC Seen by Clinical Staff ONLY (RN/MA): No Gis Scientist Required: No Do You Feel Safe at Home: Yes Authorities Contacted: N/A PCP or OBGYN visit in last 3 months: Yes Date of Last PCP or OBGYN visit: 11/22/24 Hx Now: Yes Pain Present Currently: No Pain Scale Used: Salguero-Middleton/Numerical Pain scale:: 0 Smoking Status Smoking Status: Former smoker Questionnaires Covid-19 Vaccine Questionnaire Has patient been vacinated for Covid-19 Have you been vacinated for Covid-19: No PHQ-9 PHQ-2 Over the last 2 weeks, how often have you been bothered by any of the following problems? 1. Little interest or pleasure in doing things: not at all 2. Feeling down, depressed, or hopeless: not at all Total score: 0 PHQ-9 3. Trouble falling or staying asleep, or sleeping too much: Not at all 4. Feeling tired or having little energy: Not at all 5. Poor appetite or overeating: Not at all 6. Feeling bad about yourself - or that you are a failure or have let yourself or your family down: Not at all 7. Trouble concentrating on things, such as reading the newspaper or watching television: Not at all 8. Moving or speaking so slowly that other people could have noticed? - Or the opposite - being so fidgety or restless that you have been moving around a lot more than usual: not at all 9. Thoughts that you would be better off or of hurting yourself in some way: Not at all Total score: 0 If you checked off any problems, how difficult have these problems made it for you to do your work, take care of things at home, or get along with other people?: not difficult at all Source: Developed by Drs. Kayden Alvarez, Frannie Rm, Dominic Zuleta and colleagues, with an educational robbie from [employer]. Depression screen completed yes Social History Living Situation History Lives With: Spouse Housing: House Tobacco History Smoking Status: Former smoker Second Hand Smoke Exposure: No Alcohol History Alcohol Intake: Never Alcohol Intake Frequency: holidays/special occasions only Domestic Abuse History Do You Feel Safe at Home: Yes Care OB Visit Log OB Flowsheet Initial Weight: Not Recorded Date <del>?</del> EGA Weight BP Alb Glu CTX Pres Fundal ht FHR Mov Dilation Station Effacement Hx Notes Visit Note 09/26/24 <del>?</del> 30w 3d 123/79 absent cephalic 30 156 active 24-year-old 1 para 0 for first OB visit here at [facility]. Patient is a transfer from [facility]. Records are in the chart. I reviewed results and records with patient. Reviewed third trimester lab results with patient. Advised patient to continue to increase fluids. Increase protein in the diet. And rest. Next maternal- medicine appointment is October 01. Patient reports good movement. Denies labor complaints. Complains of low backache. Complains of tingling sometimes of hands and increased leg cramps. Patient stands at work. She is working 4 hours a day. I discussed comfort measures for the tingling. Increase fluids. I gave comfort measures for leg cramps. I discussed labor precautions with patient. Patient declined Tdap today. No other concerns today. 24-year-old 1 para 0 for first OB visit here at [facility]. Patient is a transfer from [facility]. Records are in the chart. I reviewed results and records with patient. Reviewed third trimester lab results with patient. Advised patient to continue to increase fluids. Increase protein in the diet. And rest. Next maternal- medicine appointment is October 01. Patient reports good movement. Denies labor complaints. Complains of low backache. Complains of tingling sometimes of hands and increased leg cramps. Patient stands at work. She is working 4 hours a day. I discussed comfort measures for the tingling. Increase fluids. I gave comfort measures for leg cramps. I discussed labor precautions with patient. Patient declined Tdap today. No other concerns today. denies UTI complaints 10/10/24 <del>?</del> 32w 3d 69.57 kg 117/74 absent cephalic 32 135 active SGA/fetus 10%, patient has f/u mfm 3 week. reports good weight gain/30lb. 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 reviewed s/s of srom vs increased discharge. spec exam, + yeast, vagina red, curdy discharge. yellow green, nuswab plus, gynelotrimin x 7 and metronidazole 500 bid x7, comfort measure for back ache, ER precaution, declined TDAP. ptl precaution, discuss fkc bid. rtc 2 week 10/25/24 <del>?</del> 34w 4d 70.987 kg 121/76 occasional cephalic 33 146 active Reports movement. Reports occasional contractions. Patient feels a [place] Chan. Disability today. I scheduled ultrasound for growth. GBS next visit. Discussed labor precautions and kick count. Advised to increase fluids. Return in a week OB check 11/01/24 <del>?</del> 35w 4d 71.781 kg 127/80 occasional cephalic 35 156 active reports +FM, denies uc, occ [place] chan, denies leaking or bleeding, fetus active GBS today, discuss labor precaution, fkc bid, increase fluid, discuss ER precaution, rtc 1 week oBC 11/08/24 <del>?</del> 36w 4d 72.631 kg 112/74 occasional cephalic 36 145 active fetus active. increased michelle chan, denies leaking or bleeding labor precaution reviewed, FKC BID, discuss ER precaution, hydrate. rtc 1 week 11/15/24 <del>?</del> 37w 4d 73.539 kg 121/74 occasional cephalic 37 143 active increased uc, no bleeding, no leaking. fetus active discuss labor precaution, fkc bid, hydrate. comfort measure and danger s/s discussed 11/22/24 <del>?</del> 38w 4d 74.843 kg 124/76 occasional cephalic 38 146 active increased [pressure, denies leaking or bleeding. occ uc, fetus active discuss labor precaution, fkc bid, discuss danger s/s, ER prec. rtc 1 week obc discuss labor precaution, fkc bid, discuss danger s/s, ER prec. rtc 1 week obc, hydrate 11/28/24 <del>?</del> 39w 3d 75.977 kg 123/81 occasional cephalic 38 156 active 1 -3 50 leaked fluid this AM. fetus active, back ache,pressure, no bleeding to svdh for labor eval and ROM, complete OB today, discuss labor precaution and fkc BID, discuss PIH precaution,hydrate. rtc 1 week OBC MARTIN Calculator Estimated Delivery Date Method Current WG Current Estimate 12/02/24 Ultrasound #1 39w 3d Other Estimates 12/02/24 LMP (Certain) 39w 3d 12/02/24 Ultrasound #2 39w 3d Notes Visit Date: 11/15/24 Last Updated by: Desirae Hayden CNM GBS- Visit Date: 10/25/24 Last Updated by: Desirae Hayden CNM 24 yo , lmp 03/01/24. EDC 12/04/24, A+,abs-, rpr;;nr, rub NI, hbsag-,hiv-,HC-, GC/CT-, 3rd tri lab wnl Office Procedures OB Clinic LOC & Office Proc's Nursing/Assessment Patient Status: Established Patient OB Clinic Nursing Assessment: Medication Reconciliation, Update PMH in EMR and Vital Signs OB Clinic Coordination of Care: Consent,records obtained, informed consent, Education Simp Pt/Fam and Staff clarify orders Special Needs: Heart tones Established Patient Charge Established Patient Point Assignment: 90 Established Patient Point Charge: EP Level 3 (80-115) Assessment & Plan Diagnosis / Problem List (1) Encounter for supervision of high risk in third trimester, antepartum: Status: Acute Plan to [facility] for r/o ROM, discuss labor precaution, fkc bid. discuss ER precaution and s/s PIH. rtc 1 week Additional Plan Follow Up: 1 Week (obc)
== END 2024-11-28 10:03 | disposition home or self-care (01) ==
LOC: HODSOBC 08:46
PROVIDERS: PCP Advanced Practice Midwife; Referring Provider Advanced Practice Midwife; Supervising Provider Advanced Practice Midwife; Visit Provider Advanced Practice Midwife
DX: O09.93 Supervision of high risk pregnancy, unspecified, third trimester (principal); Z3A.39 39 weeks gestation of pregnancy
CPT/HCPCS: 99213; G0463

== ENCOUNTER 2024-11-28 10:23 | Observation (INO) | payer MEDICAID, SELFPAY ==
[2024-11-28] VITALS (20 sets, daily range): BP systolic 112–140; BP diastolic 70–81; PULSE 77–99; RESP 18–97; TEMP 36.6; O2SAT 97–99; BMI 29.6
[2024-11-28 10:46] LABS: ROM Kit Lot # 57801027; Swb Mxed in Solvent 1 min? Yes
[2024-11-28 10:57] LABS: Rupture of Fetal Membranes Negative (Negative)
--- NOTE | 2024-11-28 10:58 | XR_ITS ---
Examination: Complete OB ultrasound greater than 14 weeks Date and time of exam: November 28, 2024 1110 hours INDICATIONS: Labor evaluation, leaking amniotic fluid today Findings: Viable intrauterine single fetus with single amniotic sac presentation cephalic Cardiac motion 147 BPM Placenta posterior grade 2 Clinical correlation to 3 vessel seen Amniotic fluid index 5.4 cm Cervix 3.2 cm Ovaries obscured by bowel gas. Composite estimated gestational age based on BPD, head circumference, abdominal circumference, femur length is 37 weeks 2 days Estimated weight 3150.7 g. Survey of intracranial anatomy, spinal anatomy, abdominal anatomy, four-chamber heart performed with no abnormalities identified. Impression: Viable intrauterine gestation cephalic presentation.
== END 2024-11-28 12:19 | disposition home or self-care (01) ==
PROVIDERS: Admitting Provider Obstetrics & Gynecology; Visit Provider Advanced Practice Midwife
DX: Z34.93 Encounter for supervision of normal pregnancy, unspecified, third trimester (principal); Z3A.37 37 weeks gestation of pregnancy
CPT/HCPCS: 59025; 59899; 76805; 84112

== ENCOUNTER 2024-12-05 10:15 | Outpatient (AMB) | payer MEDICAID, SELFPAY ==
[2024-12-05 10:29] VITALS: BP 116/78; PULSE 82; RESP 17; TEMP 36.4; O2SAT 97
--- NOTE | 2024-12-05 10:29 | AMB.OBVISIT ---
Vital Signs 12/05/24 10:29 Weight 77.167 kg Weight Measurement Method Standing Scale BP 116/78 Blood Pressure Source Automatic Cuff Blood Pressure Location Right Upper Arm Position Sitting Respiration 17 Pulse 82 Pulse Source Monitor Temp 97.5 F Temp Source Temporal Artery Scan Pulse Oximetry (%) 97 Oxygen Delivery Method Room Air Allergies/Home Meds Allergies & Medications Allergies No Known Drug Allergies Allergy (Verified 12/05/24 10:30) Intake Visit Data Collection New Patient or Established: Established Patient (seen at [facility] within 3 years) Reason for Visit:: OBC 40 WKS Seen by Clinical Staff ONLY (RN/MA): No Integration Engineer Required: No Do You Feel Safe at Home: Yes Authorities Contacted: N/A PCP or OBGYN visit in last 3 months: Yes Date of Last PCP or OBGYN visit: 11/28/24 Hx Now: Yes Are you currently on any form of Control: No Pain Present Currently: No Pain Scale Used: Salguero-[place]/Numerical Pain scale:: 0 Smoking Status Smoking Status: Former smoker Questionnaires Covid-19 Vaccine Questionnaire Has patient been vacinated for Covid-19 Have you been vacinated for Covid-19: No PHQ-9 PHQ-2 Over the last 2 weeks, how often have you been bothered by any of the following problems? 1. Little interest or pleasure in doing things: not at all 2. Feeling down, depressed, or hopeless: not at all Total score: 0 PHQ-9 3. Trouble falling or staying asleep, or sleeping too much: Not at all 4. Feeling tired or having little energy: Not at all 5. Poor appetite or overeating: Not at all 6. Feeling bad about yourself - or that you are a failure or have let yourself or your family down: Not at all 7. Trouble concentrating on things, such as reading the newspaper or watching television: Not at all 8. Moving or speaking so slowly that other people could have noticed? - Or the opposite - being so fidgety or restless that you have been moving around a lot more than usual: not at all 9. Thoughts that you would be better off or of hurting yourself in some way: Not at all Total score: 0 If you checked off any problems, how difficult have these problems made it for you to do your work, take care of things at home, or get along with other people?: not difficult at all Source: Developed by Drs. Kayden Alvarez, Frannie Rm, Dominic Zuleta and colleagues, with an educational robbie from [employer]. Depression screen completed yes Social History Living Situation History Marital Status: Lives With: Spouse Housing: House Tobacco History Smoking Status: Former smoker Second Hand Smoke Exposure: No Alcohol History Alcohol Intake: Never Alcohol Intake Frequency: holidays/special occasions only Domestic Abuse History Do You Feel Safe at Home: Yes History of Present Illness HPI Narrative Carola Guerin, , presents for routine visit at 40 weeks and 3 days gestation. Patient reports intermittent contractions that have been inconsistent. Reports good movement after eating breakfast. Denies WATSON, VC, and epigastric pain. - Carola Guerin is a 24-year-old female, 1 para 0, at 40 weeks and 3 days gestation, presenting for routine visit and induction planning. - Estimated due date: 12/02/2024 (3 days ago) - Patient reports: - Occasional, inconsistent contractions - Decreased movement since last night - Improved after eating breakfast - Recent ultrasounds (late September and October) showed fetus measuring at 10th percentile - GBS negative Care OB Visit Log OB Flowsheet Initial Weight: Not Recorded Date <del>?</del> EGA Weight BP Alb Glu CTX Pres Fundal ht FHR Mov Dilation Station Effacement Hx Notes Visit Note 09/26/24 <del>?</del> 30w 3d 123/79 absent cephalic 30 156 active 24-year-old 1 para 0 for first OB visit here at [facility]. Patient is a transfer from [facility]. Records are in the chart. I reviewed results and records with patient. Reviewed third trimester lab results with patient. Advised patient to continue to increase fluids. Increase protein in the diet. And rest. Next maternal- medicine appointment is October 01. Patient reports good movement. Denies labor complaints. Complains of low backache. Complains of tingling sometimes of hands and increased leg cramps. Patient stands at work. She is working 4 hours a day. I discussed comfort measures for the tingling. Increase fluids. I gave comfort measures for leg cramps. I discussed labor precautions with patient. Patient declined Tdap today. No other concerns today. 24-year-old 1 para 0 for first OB visit here at [facility]. Patient is a transfer from [facility]. Records are in the chart. I reviewed results and records with patient. Reviewed third trimester lab results with patient. Advised patient to continue to increase fluids. Increase protein in the diet. And rest. Next maternal- medicine appointment is October 01. Patient reports good movement. Denies labor complaints. Complains of low backache. Complains of tingling sometimes of hands and increased leg cramps. Patient stands at work. She is working 4 hours a day. I discussed comfort measures for the tingling. Increase fluids. I gave comfort measures for leg cramps. I discussed labor precautions with patient. Patient declined Tdap today. No other concerns today. denies UTI complaints 10/10/24 <del>?</del> 32w 3d 69.57 kg 117/74 absent cephalic 32 135 active SGA/fetus 10%, patient has f/u mfm 3 week. reports good weight gain/30lb. 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 reviewed s/s of srom vs increased discharge. spec exam, + yeast, vagina red, curdy discharge. yellow green, nuswab plus, gynelotrimin x 7 and metronidazole 500 bid x7, comfort measure for back ache, ER precaution, declined TDAP. ptl precaution, discuss fkc bid. rtc 2 week 10/25/24 <del>?</del> 34w 4d 70.987 kg 121/76 occasional cephalic 33 146 active Reports movement. Reports occasional contractions. Patient feels a [place]. Disability today. I scheduled ultrasound for growth. GBS next visit. Discussed labor precautions and kick count. Advised to increase fluids. Return in a week OB check 11/01/24 <del>?</del> 35w 4d 71.781 kg 127/80 occasional cephalic 35 156 active reports +FM, denies uc, occ Michelle chan, denies leaking or bleeding, fetus active GBS today, discuss labor precaution, fkc bid, increase fluid, discuss ER precaution, rtc 1 week oBC 11/08/24 <del>?</del> 36w 4d 72.631 kg 112/74 occasional cephalic 36 145 active fetus active. increased michelle chan, denies leaking or bleeding labor precaution reviewed, FKC BID, discuss ER precaution, hydrate. rtc 1 week 11/15/24 <del>?</del> 37w 4d 73.539 kg 121/74 occasional cephalic 37 143 active increased uc, no bleeding, no leaking. fetus active discuss labor precaution, fkc bid, hydrate. comfort measure and danger s/s discussed 11/22/24 <del>?</del> 38w 4d 74.843 kg 124/76 occasional cephalic 38 146 active increased [pressure, denies leaking or bleeding. occ uc, fetus active discuss labor precaution, fkc bid, discuss danger s/s, ER prec. rtc 1 week obc discuss labor precaution, fkc bid, discuss danger s/s, ER prec. rtc 1 week obc, hydrate 11/28/24 <del>?</del> 39w 3d 75.977 kg 123/81 occasional cephalic 38 156 active 1 -3 50 leaked fluid this AM. fetus active, back ache,pressure, no bleeding to svdh for labor eval and ROM, complete OB today, discuss labor precaution and fkc BID, discuss PIH precaution,hydrate. rtc 1 week OBC 12/05/24 <del>?</del> 40w 3d 77.167 kg 116/78 at 40w3d, presents for routine care and induction planning. Reports inconsistent contractions and decreased FM overnight, improved after breakfast. Denies WATSON/VC/epigastric pain. Prior ultrasounds in late September and October showed growth at 10th percentile; MFM scan on 10/23 showed EFW at 17th percentile with normal SARAVANAN. FHR 145 bpm. GBS negative. Plan: Induction scheduled for 12/06/24 at 40w4d. Patient to report when called by L&D charge nurse and will be seen by Dr. Caruso. Bring car seat and personal items; only two visitors allowed. Reviewed labor precautions and instructed to monitor FM closely. Provided number for questions. MARTIN Calculator Estimated Delivery Date Method Current WG Current Estimate 12/02/24 Ultrasound #1 40w 3d Other Estimates 12/02/24 LMP (Certain) 40w 3d 12/02/24 Ultrasound #2 40w 3d Notes Visit Date: 11/15/24 Last Updated by: Desirae Hayden CNM GBS- Visit Date: 10/25/24 Last Updated by: Desirae Hayden CNM 24 yo , lmp 03/01/24. EDC 12/04/24, A+,abs-, rpr;;nr, rub NI, hbsag-,hiv-,HC-, GC/CT-, 3rd tri lab wnl Exam General General Appearance: alert, in no apparent distress and healthy appearing Head Head exam: atraumatic Neck Neck exam: Present normal inspection and trachea midline Chest Chest inspection: Present normal inspection and symmetric chest wall rise External exam: Present normal external exam; Absent tenderness Neuro Neurological exam: Present oriented X3 Psych Psychiatric exam: Present normal affect and normal mood Office Procedures OB Clinic LOC & Office Proc's Nursing/Assessment Patient Status: Established Patient OB Clinic Nursing Assessment: Medication Reconciliation, Update PMH in EMR and Vital Signs OB Clinic Coordination of Care: Complex Care and Chronic Disease 1-5, Consent,records obtained, informed consent, 4+ Authorizations needed, Lab and Imaging orders and Staff clarify orders Special Needs: Heart tones Established Patient Charge Established Patient Point Assignment: 140 Established Patient Point Charge: EP Level 4 (120-155) Assessment & Plan Diagnosis / Problem List (1) Encounter for supervision of high risk in third trimester, antepartum: Status: Acute (2) IUGR (intrauterine growth restriction) affecting care of mother: Status: Acute Plan Problem List - , 40 weeks and 3 days gestation (ICD-10: O80.9) - Intrauterine growth restriction (IUGR) (ICD-10: O36.5990) - Post-term (ICD-10: O48.9) Assessment at 40 weeks and 3 days gestation, past estimated due date of 12-02-2024. Mqqianqz-uwlko-kbyusxjy ultrasound from 10-23-2024 showed EFW at 17th percentile, with subsequent ultrasounds in late September and October indicating growth at 10th percentile, borderline IUGR. Patient reports intermittent, inconsistent contractions. heart rate noted as 145 bpm, within normal range. GBS negative. Patient notes decreased movement since previous night, with improvement after breakfast. Plan - Schedule induction for tomorrow (12/06/2024) at 40 weeks and 4 days gestation - Patient to report to hospital when instructed by charge nurse - Patient to meet with (laborist) at the hospital - Patient advised to bring car seat and personal belongings to hospital - Limit of 2 visitors allowed during labor and delivery - Patient instructed to call provided number for any questions 1. Progress Reviewed gestational age, growth, and heart rate. Planned frequent visits (every 2 weeks until 36 weeks, then weekly). 2. Instructed patient to monitor movements and report decreases immediately. 3. Testing Counseled on routine third-trimester labs per guidelines. Discussed potential need for ultrasound or monitoring based on risk factors. 4. Preeclampsia Precaution Educated on preeclampsia signs: severe headache, vision changes, right upper quadrant pain, sudden swelling. Advised urgent reporting of symptoms and discussed blood pressure monitoring if high risk. 5. Labor Precautions Reviewed labor signs: regular contractions, pelvic pressure, back pain, bleeding, or fluid leakage. Instructed to seek immediate care for these symptoms. 6. Lifestyle and Delivery Preparation Reinforced vitamins, nutrition, and safe activity. Discussed plan, pain management, and . Advised on labor preparation (e.g., hospital bag) and expectations. 7. Psychosocial Support Assessed emotional well-being and offered resources for mental health or parenting support.
== END 2024-12-05 10:40 | disposition home or self-care (01) ==
LOC: HODSOBC 10:15
PROVIDERS: PCP Advanced Practice Midwife; Referring Provider Advanced Practice Midwife; Supervising Provider Obstetrics & Gynecology; Visit Provider Obstetrics & Gynecology
DX: O09.893 Supervision of other high risk pregnancies, third trimester (principal); O48.0 Post-term pregnancy; O36.5930 Maternal care for other known or suspected poor fetal growth, third trimester, not applicable or unspecified; Z3A.40 40 weeks gestation of pregnancy
CPT/HCPCS: 99214; G0463

== ENCOUNTER 2024-12-07 05:37 | Inpatient (IN) | payer MEDICAID, SELFPAY ==
[2024-12-07] VITALS (192 sets, daily range): BP systolic 100–143; BP diastolic 55–84; PULSE 59–123; RESP 18–99; TEMP 36.3–37.5; O2SAT 90–100; BMI 34.3
--- NOTE | 2024-12-07 07:14 | XR_ITS ---
Examination: age Limited TECHNIQUE: Limited transabdominal sonographic images pelvis Date and time: December 07, 2024, 0804 hours Comparison November 28, 2024 INDICATIONS: Post dates diagnosis, pelvic contractions today FINDINGS: Viable intrauterine gestation cephalic presentation. Cardiac motion 143 BPM Amniotic fluid index 6.8 cm IMPRESSION: Viable intrauterine gestation cephalic presentation
[2024-12-07 09:19] LABS: Basophils # (Auto) 0.1 Thou/mm3 (0.0-0.2); Basophils % (Auto) 0 % (0-2.5); Eosinophils # (Auto) 0.1 Thou/mm3 (0.0-0.5); Eosinophils % (Auto) 1 % (0-10); Hematocrit 39.7 % (36.0-46.0); Hemoglobin 13.3 g/dL (12.0-16.0); Immature Granulocytes % (Auto) 1 % (0-0); Immature Granulocytes Auto 0.08 Thou/mm3 (0.00-0.00); Lymphocytes # (Auto) 1.5 Thou/mm3 (1.0-4.8); Lymphocytes % (Auto) 10 % (10-50); Mean Corpuscular HGB Conc 33.5 g/dl (31.0-37.0); Mean Corpuscular Hemoglobin 27.9 pg (25.0-35.0); Mean Corpuscular Volume 83 fL (80-100); Monocytes # (Auto) 0.7 Thou/mm3 (0.0-0.8); Monocytes % (Auto) 5 % (0-12); Neutrophils % (Auto) 84 % (37-80); Nucleated Red Blood Cell % 0 /100 WBC (0); Platelet Count 191 Thou/mm3 (140-440); RDW Standard Deviation 43.4 fL (36.4-46.3); Red Blood Count 4.76 Miln/mm3 (4.00-5.20); White Blood Count 14.4 Thou/mm3 (3.6-11.0)
[2024-12-07 09:57] LABS: Syphilis Nonreactive (Nonreactive)
--- NOTE | 2024-12-07 18:03 | PD.LDHP ---
Documentation for date of: 12/07/24 OB Labor/Induct. HPI History of Present Illness Chief complaint: Early labor : 1 Para: 0 Term pregnancies: 0 pregnancies: 0 Living children: 0 History of Abortions: Spontaneous and Elective: 0 History of Vaginal deliveries: 0 History of sections: No History of : No Date of last menstrual period: 03/01/24 MARTIN: 12/02/24 Gestational Age (weeks): 40 Gestational Age (days): 5 Gestational age based on last menstrual period: 40 Indication for induction: post dates History of present illness: Patient is a 24-year-old G1, P0 at 40-5/7 weeks who usually sees Desirae RUTHERFORD for care. She was scheduled for an induction of labor today. She did come to triage with some cramping ahead of her scheduled induction. The SARAVANAN on the baby was 6. She was admitted for induction of labor secondary to postdates with borderline SARAVANAN. On admission patient's cervix was 1 to 2 cm. She did walk for a while and when I examined her around lunchtime patient progressed to 3 to 4 cm dilatation. Group B strep is negative. History of Present Dating criteria: LMP confirmed by 1st trimester US Adequate Care: Yes Ultrasounds: normal mid trimester US Obstetrical complications: none Medical complications: none Labs Maternal Blood Type: A Pos Labs: Positive: Rubella Titre, Negative: RPR, Hepatitis B, HIV, Chlamydia, Gonorrhea and Group Beta Strep and Unknown: Herpes Type 1, Herpes Type 2 and Covid-19 Past Medical History Surgical History SURGICAL: Negative Section Meds Home Medications and Allergies Home Medications ?Medication ?Instructions ?Recorded ?Confirmed ?Type No Known Home Medications 10/25/24 11/28/24 History Allergies Allergy/AdvReac Type Severity Reaction Status Date / Time No Known Drug Allergies Allergy Verified 12/07/24 06:06 OB Exam Physical Exam Vital signs: Temp Pulse Resp BP Pulse Ox 97.4 F 77 18 134/79 H 99 12/07/24 05:58 12/07/24 17:58 12/07/24 05:58 12/07/24 17:58 12/07/24 18:00 Routine Abdominal Exam Abdominal: Present soft Detailed Labor and Delivery Exam Dilation (cm): 3-4 Effacement (%): 80 Cervix position: posterior station: -2 Consistency: soft Presentation: Vertex Membranes: intact monitor accelerations: 15x15 monitor decelerations: None termite control representative variability: Moderate (11-25) Contraction frequency (min): Irregular OB Results Labs 12/07/24 08:55 Labs: Short CBC 12/07/24 Range/Units 08:55 WBC 14.4 H (3.6-11.0) Thou/mm3 Hgb 13.3 (12.0-16.0) g/dL Hct 39.7 (36.0-46.0) % Plt Count 191 (140-440) Thou/mm3 OB Assessment & Plan Assessment and Plan (1) Encounter for supervision of high risk in third trimester, antepartum: Status: Acute (2) Post-dates : Status: Acute Assessment and plan: Admit. Augment labor if necessary. Epidural if desired. All questions answered. (2) Post-dates Qualifiers: Post-term type: 40-42 weeks gestation Qualified Code(s): O48.0 - Post-term
--- NOTE | 2024-12-07 18:08 | PD.LDPN ---
Documentation for date of: 12/07/24 OB Labor Progress Note Pain Control Pain control: epidural Pelvic Exam Dilation (cm): 5 Effacement (%): 90 station: -2 Amniotic membrane status: Ruptured Comments: AROM to patient at 6:00 PM. Thick meconium noted. IUPC placed. Amnioinfusion ordered. Contractions Monitor mode: External Contraction frequency: Irregular Contraction intensity: Moderate Status status: Category ll Assessment and Plan Assessment: active labor Plan OB labor note: continuous present management Comments: Amnioinfusion ordered. If contractions space, order Pitocin augmentation
[2024-12-07] MEDS: RINGERS LACTATED 1000 ML 1,000 ML 100 ML IV (18:11)
[2024-12-07] MEDS: ACETAMINOPHEN 325 MG TABLET 650 MG PO (20:42)
--- NOTE | 2024-12-07 21:34 | PC.NURSE ---
Telephone update to Dr. Kiana Abdi regarding ctxs, fht's, MVU's 150-170 to inquire about Pitocin augmentation. Telephone orders read back received for pitocin augmentation.
[2024-12-07] MEDS: OXYTOCIN in NS 30 units 30 UNIT/500 ML BAG IV (21:48)
[2024-12-08] VITALS (77 sets, daily range): BP systolic 114–169; BP diastolic 63–119; PULSE 72–152; RESP 14–20; TEMP 36.7–37.6; O2SAT 96–100
[2024-12-08] MEDS: RINGERS LACTATED 1000 ML 1,000 ML 100 ML IV (00:35)
[2024-12-08] MEDS: OXYTOCIN in NS 20 units 20 UNIT/1,000 ML BAG 125 UNIT IV (03:36)
[2024-12-08] MEDS: METHYLERGONOVINE INJ 0.2 MG/ML VIAL IM (03:40)
[2024-12-08] MEDS: LIDOCAINE HCL 1% 20 ML VIAL INFL (03:42)
[2024-12-08] MEDS: TRANEXAMIC ACID 1,000 MG IVPB 1,000 MG/100 ML BAG 200 MG IV (03:45)
[2024-12-08] MEDS: MISOPROSTOL 200 mCg TABLET 800 MCG PR (03:48)
[2024-12-08] MEDS: BENZO/LANO/ALOE (Dermoplast) 60 GM CAN 1 SPRAY TOP (03:49)
[2024-12-08] MEDS: ceFAZolin/D5W 2 GM IV 2 GM/100 ML BAG IV (04:08)
[2024-12-08] MEDS: IBUPROFEN TAB 400 MG TABLET 800 MG PO ×3 (04:10→20:47)
--- NOTE | 2024-12-08 04:54 | PD.LDDELS ---
Data (Salguero) Data Hx Section: No Maternal Blood Type: AB Pos Rubella Titre: Positive RPR: Non-reactive Labs: Negative: RPR, Hepatitis B, HIV, Chlamydia, Gonorrhea and Group Beta Strep : 1 Term: 0 : 0 Livin Abortions: Spontaneous & Theraputic: 0 Delivery Data (Salguero) Labor Data Initiation of labor: Augmentation Induction/Augmentation Agent: Pitocin and Artificial ROM ROM date: 12/07/24 ROM time: 17:50 Amniotic membrane rupture type: Artificial Amniotic fluid description: Moderate Meconium and Particulate Meconium Delivery Data EDC: 12/02/24 EDC calculated by:: LMP/early US confirmation Date of arrival to unit: 12/07/24 Onset of labor date: 12/07/24 Onset of labor time: 13:10 Complete dilation date: 12/08/24 Complete dilation time: 00:04 [place] delivery date: 12/08/24 [place] delivery time: 03:33 Gestational age (weeks): 40 Gestational age (days): 6 Placenta delivery date: 12/08/24 Placenta delivery time: 03:36 Stage 1 total time: Labor - Stage 1 Duration 10 hours and 54 minutes Delivered by: Kiana Abdi (OB Clinic) Delivery nurse: Lynne Hernández RN and Gordon Villafuerte RN [place] nurse: Nicole Raman, OLIVIA and Maria A Olivera, OLIVIA Junior Staff Accountant at delivery: No Support person(s) at delivery: Father of baby/significant other and patient's mother Delivery Method Delivery method: Normal Vaginal Delivery Presentation: Vertex position: OA Anesthesia Type Anesthesia Type: Local and Epidural Delivery Room Medications Delivery room medications: Lidocaine (local), Methergine 0.2 mg IM, Pitocin 20 u IV, Cytotec 800 OK and other (TXA) Placenta Placenta delivery description: Spontaneous Cord blood sent to lab: Yes cord blood collection: Cord Blood Type Episiotomy Episiotomy description: None Lacerations #1: Perineal: 1st degree Perineal repair Sutures used for repair: other (2-0 chromic) EBL Estimated blood loss (ml): 400 Umbilical Cord cord description: 3 Vessels, Nuchal Cord, Loose and Reduced Additional Procedures The patient is a 24-year-old G1, P0 admitted the morning of 12/07/2024 through triage for some irregular contractions. Patient was 40-5/7 weeks was going to be induced any day. I admitted the patient she had progressed to 3 to 4 cm on her own. Epidural was placed. Amniotomy was performed and thick meconium noted intrauterine pressure catheter was placed and and amnioinfusion was started. Pitocin augmentation was begun. Patient went on to progress to complete and labor down for little bit of time. She then pushed ineffectively for a few contractions and her epidural was turned off. She then pushed about an hour and 20 minutes delivering a liveborn female at 0333 in the morning on 12/08/2024 . Findings liveborn female in the KAREN presentation with a loose nuchal cord x 1 and thick meconium. Apgars were 9 and 9 weight was 7 pounds 3 ounces. The placenta was complete spontaneous grossly normal delivering about 3 minutes after the baby delivered. At delivery, the patient was noted to have some brisk bleeding noted. Vigorous uterine massage was performed. IM Methergine was called for followed by TXA. Patient continued to pass some clots and Cytotec 800 mcg rectally was then placed. At the end of all these interventions her bleeding was noted to be scant. Patient sustained a first-degree perineal laceration repaired in a standard fashion using 2-0 chromic. Patient's predelivery hemoglobin was 13. Complications were hemorrhage condition both mom and were in stable condition the delivery room. Complications Complications: hemorrhage. Patient was given Methergine, Cytotec and TXA with vigorous uterine massage. EBL 400 cc. Data (Salguero) [place] Data order: 1 Paauilo's gender: Female Identification band number: [id number] weight (gms): 3265 g Weight (pounds): 7 lbs and 3.2 ozs length: 50.8 cm 1 minute: 9 5 minutes: 9
[2024-12-08] MEDS: ACETAMINOPHEN 325 MG TABLET 650 MG PO ×2 (08:50→16:46)
[2024-12-08 13:04] LABS: Basophils # (Auto) 0.1 Thou/mm3 (0.0-0.2); Basophils % (Auto) 0 % (0-2.5); Eosinophils % (Auto) 0 % (0-10); Hematocrit 30.2 % (36.0-46.0); Hemoglobin 10.3 g/dL (12.0-16.0); Immature Granulocytes % (Auto) 1 % (0-0); Lymphocytes # (Auto) 1.5 Thou/mm3 (1.0-4.8); Lymphocytes % (Auto) 7 % (10-50); Mean Corpuscular HGB Conc 34.1 g/dl (31.0-37.0); Mean Corpuscular Hemoglobin 28.4 pg (25.0-35.0); Mean Corpuscular Volume 83 fL (80-100); Monocytes # (Auto) 1.2 Thou/mm3 (0.0-0.8); Monocytes % (Auto) 6 % (0-12); Neutrophils # (Auto) 17.6 Thou/mm3 (1.8-7.7); Neutrophils % (Auto) 86 % (37-80); Nucleated Red Blood Cell % 0 /100 WBC (0); Platelet Count 164 Thou/mm3 (140-440); RDW Standard Deviation 44.5 fL (36.4-46.3); Red Blood Count 3.63 Miln/mm3 (4.00-5.20); White Blood Count 20.5 Thou/mm3 (3.6-11.0)
[2024-12-09] VITALS: BP 117/70; PULSE 77; RESP 18; TEMP 36.6; O2SAT 97
[2024-12-09 04:00] VITALS: BP 131/81; PULSE 86; RESP 18; TEMP 36.5; O2SAT 96
[2024-12-09 08:20] VITALS: BP 128/84; PULSE 84; RESP 15; TEMP 36.8; O2SAT 98
[2024-12-09] MEDS: IBUPROFEN TAB 400 MG TABLET 800 MG PO (08:20)
--- NOTE | 2024-12-09 08:35 | PD.LDPPPRG ---
Subjective Subjective Interval history: Delivery type: Patient doing well this morning. No acute complaints. Ambulating, tolerating p.o. and voiding without difficulty. HTN/Pre-Eclampsia screen: No chest pain, shortness of breath, headache, visual changes, epigastric or right upper quadrant pain. Breast-feeding, lochia diminishing. Bowel: Flatus+/ BM+ Exam Vital Signs Temp Pulse Resp BP Pulse Ox O2 Del Method 97.7 F 86 18 131/81 H 96 Room Air 12/09/24 04:00 12/09/24 04:00 12/09/24 04:00 12/09/24 04:00 12/09/24 04:00 12/09/24 04:00 Constitutional Constitutional: no acute distress Routine HEENT Exam Head: Present normocephalic and atraumatic Eye: Present EOMI and PERRL ENT: Present mucous membranes moist Routine Neck Exam Neck: Present supple and trachea midline Routine Respiratory Exam Respiratory: Present chest non-tender, lungs clear, normal breath sounds and no resp distress Routine Cardiovascular Exam Cardiovascular: Present RRR Routine Abdominal Exam Abdominal: Present soft and normoactive bowel sounds Routine Extremities Exam Extremities: Present full ROM Routine Skin Exam Skin: Present intact, dry and warm Routine Neurological Exam Neurological: Present alert, oriented X3 and CN II-XII intact Routine Psychiatric Exam Psychiatric: Present normal affect and normal thought process Objective Labs 12/08/24 12:27 Labs: Laboratory Results - last 24 hr 12/08/24 12:27 WBC 20.5 H D RBC 3.63 L Hgb 10.3 L D Hct 30.2 L MCV 83 MCH 28.4 MCHC 34.1 RDW Std Deviation 44.5 Plt Count 164 Neut % (Auto) 86 H Lymph % (Auto) 7 L [place] % (Auto) 6 Eos % (Auto) 0 Baso % (Auto) 0 Neut # (Auto) 17.6 H Lymph # (Auto) 1.5 [place] # (Auto) 1.2 H Eos # (Auto) 0.0 Baso # (Auto) 0.1 Immature Gran # (Auto) 0.10 H Absolute Nucleated RBC 0.00 Immature Gran % 1 H Nucleated RBC % 0 Assessment & Plan Problem List (1) Encounter for supervision of high risk in third trimester, antepartum: Status: Acute Assessment and plan: PPD/POD#2 1. Continue routine care 2. Transition to PO meds. 3. Encourage to ambulate/ breast-feed 4. Anticipate discharge home today. (2) Post-dates : Status: Acute Time Spent With Patient Time: Total time spent is greater than 50% in coordination of care (as documented) at patient's floor/unit and/or counseling patient:
--- NOTE | 2024-12-09 08:36 | PD.LDDS ---
DS: Providers Provider Date of admission: 12/07/24 08:36 Primary care physician: Physician No Primary/Family Admitting Provider: Kourtney Caruso MD Attending Provider on Admission: Angel Luis Guzman MD Consults: 12/08/24 05:05 Referral Routine Comment: Attending Provider on DC: Angel Luis Guzman MD Discharging Provider: Angel Luis Guzman MD DS: Diagnosis Discharge Diagnosis (1) Post-dates : Status: Acute (2) IUGR (intrauterine growth restriction) affecting care of mother: Status: Acute Problem List Completed Was Problem List Reviewed/Reconciled?: Yes Summary/Hosp Course Brief History: Patient is a 24-year-old G1, P0 at 40-5/7 weeks who usually sees Desirae RUTHERFORD for care. She was scheduled for an induction of labor today. She did come to triage with some cramping ahead of her scheduled induction. The SARAVANAN on the baby was 6. She was admitted for induction of labor secondary to postdates with borderline SARAVANAN. On admission patient's cervix was 1 to 2 cm. She did walk for a while and when I examined her around lunchtime patient progressed to 3 to 4 cm dilatation. Group B strep is negative. Peripartum Data Delivery Method: Normal Vaginal Delivery Episiotomy Description: None Time Spent with Patient Time attestation: Total time spent providing and/or coordinating discharge services: Exam Vital Signs Temp Pulse Resp BP Pulse Ox O2 Del Method 97.7 F 86 18 131/81 H 96 Room Air 12/09/24 04:00 12/09/24 04:00 12/09/24 04:00 12/09/24 04:00 12/09/24 04:00 12/09/24 04:00 Discharge Plan Plan Patient Disposition: HOME (Self Care) Patient condition on transfer: Stable Prescriptions/Referrals Prescriptions/Med Rec: New ibuprofen 400 mg Tablet 800 mg PO Q8H PRN (Reason: See Comments) 10 Days Qty: 40 0RF docusate sodium [Stool Softener] 100 mg capsule 100 mg PO QDAY 30 Days Qty: 30 0RF Referrals: No Primary/Family,Physician [Primary Care Provider] - Angel Luis Guzman MD [Physician] - Patient/Caregiver Discharge Instructions Education Materials: and Childbirth ..., Pain After Childbirth, Depression, After Delivery Concerns, Breast Care After Print Language: Slovenian Stand Alone Forms: Lynda Award Info., Patient Portal Info Letter Planned Discharge Date 12/09/24 (1) Post-dates Qualifiers: Post-term type: 40-42 weeks gestation Qualified Code(s): O48.0 - Post-term
== END 2024-12-09 11:50 | disposition home or self-care (01) | DRG 560 ==
LOC: S4SX 13:23 → S4NX 12-08 06:28
PROVIDERS: Obstetrics & Gynecology; Admitting Provider Obstetrics & Gynecology; Visit Provider Obstetrics & Gynecology
DX: O48.0 Post-term pregnancy (principal); Z3A.40 40 weeks gestation of pregnancy; Z37.0 Single live birth; O70.0 First degree perineal laceration during delivery; O69.81X0 Labor and delivery complicated by cord around neck, without compression, not applicable or unspecified; O72.1 Other immediate postpartum hemorrhage; O77.0 Labor and delivery complicated by meconium in amniotic fluid; O36.5930 Maternal care for other known or suspected poor fetal growth, third trimester, not applicable or unspecified
CPT/HCPCS: 36415; 59025; 59409; 76815; 85025; 86780; 86850; 86900; 86901; 94762; J0689; J2210; J2590; J2795; J3010; J3490; J7120; S0191; A9270

== ENCOUNTER 2025-02-12 09:52 | Outpatient (AMB) | payer MEDICAID, SELFPAY ==
[2025-02-12 10:32] VITALS: BP 117/76; PULSE 73; RESP 16; TEMP 36.2; O2SAT 98
--- NOTE | 2025-02-12 10:32 | AMB.OBPP ---
Vital Signs 02/12/25 10:32 Weight 61.405 kg Weight Measurement Method Standing Scale BP 117/76 Blood Pressure Source Automatic Cuff Blood Pressure Location Left Upper Arm Position Sitting Respiration 16 Pulse 73 Pulse Source Monitor Temp 97.2 F Temp Source Oral Pulse Oximetry (%) 98 Oxygen Delivery Method Room Air Allergies/Home Meds Allergies & Medications Allergies No Known Drug Allergies Allergy (Verified 02/12/25 10:33) Medication Reconciliation norethindrone (contraceptive) 0.35 mg tablet 0.35 mg PO QDAY #84 tabs 02/12/25 [Rx] Intake Visit Data Collection New Patient or Established: Established Patient (seen at [facility] within 3 years) Reason for Visit:: Seen by Clinical Staff ONLY (RN/MA): No Stallion Keeper Required: No Do You Feel Safe at Home: Yes Authorities Contacted: N/A PCP or OBGYN visit in last 3 months: Yes Date of Last PCP or OBGYN visit: 12/09/24 Hx Now: No Are you currently on any form of Control: No Pain Present Currently: No Pain Scale Used: Salguero-[place]/Numerical Pain scale:: 0 Smoking Status Smoking Status: Former smoker 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: Past Medical History Past Medical History: No Hx Neurological Disorders, No Hx Cardiac Disorders, No Hx Blood Disorders, No Hx Anemia, No Hx Gastrointestinal Disorders, No Hx Renal Disease, No Hx Diabetes Mellitus Type 1 and No Hx Diabetes Mellitus Type 2 Questionnaires Covid-19 Vaccine Questionnaire Has patient been vacinated for Covid-19 Have you been vacinated for Covid-19: No Social History Living Situation History Lives With: Family Housing: House Tobacco History Smoking Status: Former smoker Second Hand Smoke Exposure: No Alcohol History Alcohol Intake: Former Alcohol Intake Frequency: holidays/special occasions only Domestic Abuse History Do You Feel Safe at Home: Yes EPDS - PP Depression Screening [facility] Depression Screen I have been able to laugh and see the funny side of things: (0) As much as I always could I have looked forward with enjoyment to things: (0) As much as I ever did I have blamed myself unnecessarily when things went wrong: (0) No, never I have been anxious or worried for no good reason: (0) No, not at all I have felt scared or panicky for no very good reason: (0) No, not at all Things have been getting on top of me: (0) No, I have been coping as well as ever I have been so unhappy that I have had difficulty sleeping: (0) No, not at all I have felt sad or miserable: (0) No, not at all I have been so unhappy that I have been crying: (0) No, never The thought of harming myself has occurred to me: (0) Never Total Score: EPDS Score: Referral is indicated for score of 9 or more, suicidal, or if provider believes patient is depressed regardless of score.: 0 EPDS completed yes Care OB Visit Log OB Flowsheet Initial Weight: Not Recorded Date <del>?</del> EGA Weight BP Alb Glu CTX Pres Fundal ht FHR Mov Dilation Station Effacement Hx Notes Visit Note 09/26/24 <del>?</del> 30w 3d 123/79 absent cephalic 30 156 active 24-year-old 1 para 0 for first OB visit here at [facility] (formerly [facility] Patient is a transfer from [facility]. Records are in the chart. I reviewed results and records with patient. Reviewed third trimester lab results with patient. Advised patient to continue to increase fluids. Increase protein in the diet. And rest. Next maternal- medicine appointment is October 01. Patient reports good movement. Denies labor complaints. Complains of low backache. Complains of tingling sometimes of hands and increased leg cramps. Patient stands at work. She is working 4 hours a day. I discussed comfort measures for the tingling. Increase fluids. I gave comfort measures for leg cramps. I discussed labor precautions with patient. Patient declined Tdap today. No other concerns today. 24-year-old 1 para 0 for first OB visit here at [facility] ([facility] Patient is a transfer from [facility]. Records are in the chart. I reviewed results and records with patient. Reviewed third trimester lab results with patient. Advised patient to continue to increase fluids. Increase protein in the diet. And rest. Next maternal- medicine appointment is October 01. Patient reports good movement. Denies labor complaints. Complains of low backache. Complains of tingling sometimes of hands and increased leg cramps. Patient stands at work. She is working 4 hours a day. I discussed comfort measures for the tingling. Increase fluids. I gave comfort measures for leg cramps. I discussed labor precautions with patient. Patient declined Tdap today. No other concerns today. denies UTI complaints 10/10/24 <del>?</del> 32w 3d 69.57 kg 117/74 absent cephalic 32 135 active SGA/fetus 10%, patient has f/u mfm 3 week. reports good weight gain/30lb. 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 reviewed s/s of srom vs increased discharge. spec exam, + yeast, vagina red, curdy discharge. yellow green, nuswab plus, gynelotrimin x 7 and metronidazole 500 bid x7, comfort measure for back ache, ER precaution, declined TDAP. ptl precaution, discuss fkc bid. rtc 2 week 10/25/24 <del>?</del> 34w 4d 70.987 kg 121/76 occasional cephalic 33 146 active Reports movement. Reports occasional contractions. Patient feels a [place]. Disability today. I scheduled ultrasound for growth. GBS next visit. Discussed labor precautions and kick count. Advised to increase fluids. Return in a week OB check 11/01/24 <del>?</del> 35w 4d 71.781 kg 127/80 occasional cephalic 35 156 active reports +FM, denies uc, occ [place], denies leaking or bleeding, fetus active GBS today, discuss labor precaution, fkc bid, increase fluid, discuss ER precaution, rtc 1 week oBC 11/08/24 <del>?</del> 36w 4d 72.631 kg 112/74 occasional cephalic 36 145 active fetus active. increased michelle chan, denies leaking or bleeding labor precaution reviewed, FKC BID, discuss ER precaution, hydrate. rtc 1 week 11/15/24 <del>?</del> 37w 4d 73.539 kg 121/74 occasional cephalic 37 143 active increased uc, no bleeding, no leaking. fetus active discuss labor precaution, fkc bid, hydrate. comfort measure and danger s/s discussed 11/22/24 <del>?</del> 38w 4d 74.843 kg 124/76 occasional cephalic 38 146 active increased [pressure, denies leaking or bleeding. occ uc, fetus active discuss labor precaution, fkc bid, discuss danger s/s, ER prec. rtc 1 week obc discuss labor precaution, fkc bid, discuss danger s/s, ER prec. rtc 1 week obc, hydrate 11/28/24 <del>?</del> 39w 3d 75.977 kg 123/81 occasional cephalic 38 156 active 1 -3 50 leaked fluid this AM. fetus active, back ache,pressure, no bleeding to svdh for labor eval and ROM, complete OB today, discuss labor precaution and fkc BID, discuss PIH precaution,hydrate. rtc 1 week OBC 12/05/24 <del>?</del> 40w 3d 77.167 kg 116/78 at 40w3d, presents for routine care and induction planning. Reports inconsistent contractions and decreased FM overnight, improved after breakfast. Denies WATSON/VC/epigastric pain. Prior ultrasounds in late September and October showed growth at 10th percentile; MFM scan on 10/23 showed EFW at 17th percentile with normal SARAVANAN. FHR 145 bpm. GBS negative. Plan: Induction scheduled for 12/06/24 at 40w4d. Patient to report when called by L&D charge nurse and will be seen by Dr. Caruso. Bring car seat and personal items; only two visitors allowed. Reviewed labor precautions and instructed to monitor FM closely. Provided number for questions. MARTIN Calculator Estimated Delivery Date Method Current WG Current Estimate 12/02/24 Ultrasound #1 50w 2d Other Estimates 12/02/24 LMP (Certain) 50w 2d 12/02/24 Ultrasound #2 50w 2d Notes Visit Date: 11/15/24 Last Updated by: Desirae Hayden CNM GBS- Visit Date: 10/25/24 Last Updated by: Desirae Hayden CNM 24 yo , lmp 03/01/24. EDC 12/04/24, A+,abs-, rpr;;nr, rub NI, hbsag-,hiv-,HC-, GC/CT-, 3rd tri lab wnl HPI Interval History: 24-year-old 1 para 0 for 6-week . Patient had a vaginal December 08, 2024. A baby girl weighing 7 pounds 3. She is breast-feeding reports good help at home. The father of the baby is involved. She had sex 5 days ago unprotected. Denies depression. She reports that she is happy. She like to go back to the [facility] when she stops breast-feeding. No interval complaints. She plans to go back to work in 5 days. 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 Lungs clear no wheezes. Abdomen is soft nontender. Uterus well involuted. Perineum is intact no lacerations. No swelling. Small lochia. Negative Homans' sign. 2+ DTRs. No edema no swelling. Breasts are soft General Limitations: no limitations General Appearance: alert, in no apparent distress, comfortable, cooperative, healthy appearing, well developed and well groomed Head Head exam: atraumatic, normocephalic and normal inspection Resp Respiratory exam: Present normal lung sounds bilaterally Card Cardiovascular exam: Present regular rate, normal rhythm and normal heart sounds Abdominal Abdominal exam: Present soft and normal bowel sounds Extremities Extremities exam: Present normal inspection and full ROM Psych Psychiatric exam: Present normal affect and normal mood Office Procedures OB Clinic LOC & Office Proc's Nursing/Assessment Patient Status: Established Patient OB Clinic Nursing Assessment: Medication Reconciliation, Update PMH in EMR and Vital Signs OB Clinic Coordination of Care: Education Complex Pt/Fam, Consent,records obtained, informed consent, Lab and Imaging orders and Staff clarify orders Established Patient Charge Established Patient Point Assignment: 80 Post Follow-up Visit Post Follow up Visit: Yes Assessment & Plan Diagnosis / Problem List (1) Routine Follow-Up: (2) 6 weeks follow-up: Status: Acute Plan Micronor x 6. No sex for 2 weeks. Do home test if is negative start Micronor then. Condoms for 2 weeks. Reviewed method side effects and effectiveness. Continue multivitamins folic acid and. Diet and exercise reviewed. Increase fluids. Discussed latching. Return in 6 months or as needed did change to the NuvaRing Care Reviewed delivery summary and any complications: Yes Uterus involuted to: 4 below Perineal / incision healing noted: Yes Screened for depression: Yes Depression counseling provided: No Discussed family planning & contraception: Yes Contraception planned: micronor Counseling on gradual excercise: Yes Discussed and concerns (describe), provided support: Yes Referred to non destructive evaluation specialist: No Counseled on good nutrition, hydration, and self care: Yes Reviewed vaccine status: No Chronic & current problems reconciled on problem list: Yes care discussed; questions answered: feeding Follow up: routine/prn Additional counseling & anticipatory guidance provided: rtc 6 month to change to nuva ring (FP) Tobacco Smoking Status: Former smoker
== END 2025-02-12 10:56 | disposition home or self-care (01) ==
LOC: HODSOBC 09:52
PROVIDERS: Supervising Provider Advanced Practice Midwife; Visit Provider Advanced Practice Midwife
DX: Z39.2 Encounter for routine postpartum follow-up (principal); Z39.1 Encounter for care and examination of lactating mother; Z87.891 Personal history of nicotine dependence
CPT/HCPCS: 59430